=== PATIENT | female | born 1955 | race Caucasian/White ===

== ENCOUNTER → 2019-12-17 13:40 | Outpatient (REF) | payer OTHER, SELFPAY | LOC: ANHLAB 13:40 | PROVIDERS: PCP Family Medicine; Visit Provider Nurse Practitioner | DX: D49.2 Neoplasm of unspecified behavior of bone, soft tissue, and skin (principal); D22.72 Melanocytic nevi of left lower limb, including hip | CPT/HCPCS: 88305 ==

== ENCOUNTER 2019-12-23 17:30 | Outpatient (CLI) | payer OTHER, SELFPAY ==
[2019-12-23 17:48] LABS: Hematocrit 42.9 % (37.0-47.0); Hemoglobin 13.8 g/dL (12.0-15.0); Mean Corpuscular HGB Conc 32.2 g/dl (32-36); Mean Corpuscular Volume 83.8 fl (80-100); Mean Platelet Volume 10.3 fl (7.4-10.4); Platelet Count Result 291 k/mm3 (150-375); Red Blood Count 5.12 M/mm3 (4.2-5.4); Red Cell Distribution Width 13.4 % (11.5-14.5); White Blood Count 8.2 K/mm3 (4.5-10.0)
[2019-12-23 17:58] LABS: Blood Urea Nitrogen 15 mg/dL (7-17); Calcium 9.4 mg/dL (8.4-10.2); Carbon Dioxide 28 mmol/L (22-30); Chloride 104 mmol/L (98-107); Estimated Glomerular Filt Rate > 60; Glucose 88 mg/dL (65-105); Potassium 3.8 mmol/L (3.4-5.0); Sodium 139 mmol/L (137-145)
== END 2019-12-23 17:31 | disposition home or self-care (01) ==
PROVIDERS: PCP Family Medicine; Visit Provider Physician Assistant Medical
DX: R19.7 Diarrhea, unspecified (principal)
CPT/HCPCS: 36415; 80048; 85027

== ENCOUNTER 2020-01-29 10:34 | Outpatient (CLI) | payer OTHER, SELFPAY ==
[2020-01-29 11:09] LABS: Alanine Aminotransferase 41 U/L (4-35); Albumin Level 4.4 g/dL (3.5-5.1); Alkaline Phosphatase 201 U/L (38-126); Aspartate Amino Transferase 42 U/L (14-36); Bilirubin,Total 0.5 mg/dL (0.2-1.3)
== END 2020-01-29 10:35 | disposition home or self-care (01) ==
LOC: ANHLAB 10:38
PROVIDERS: PCP Family Medicine; Visit Provider Physician Assistant Medical
DX: R19.4 Change in bowel habit (principal)
CPT/HCPCS: 36415; 80076

== ENCOUNTER 2020-06-05 11:11 | Outpatient (CLI) | payer OTHER, SELFPAY ==
[2020-06-05 12:15] LABS: Basophils Percent Auto 0.7 % (0.2-1.2); Eosinophils Absolute Auto 0.2 K/mm3 (0-0.3); Eosinophils Percent Auto 3.1 % (0-4.4); Hematocrit 41.8 % (37.0-47.0); Hemoglobin 13.2 g/dL (12.0-15.0); Immature Granulocyte Absolute 0.01 K/mm3 (0.00-0.031); Immature Granulocyte Percent A 0.2 % (0-0.5); Lymphocytes Absolute Auto 1.42 K/mm3 (0.9-3.2); Mean Corpuscular HGB Conc 31.6 g/dl (32-36); Mean Corpuscular Hemoglobin 27.1 pg (26-34); Mean Corpuscular Volume 85.8 fl (80-100); Mean Platelet Volume 11.4 fl (7.4-10.4); Monocytes Absolute Auto 0.4 K/mm3 (0.1-0.6); Monocytes Percent Auto 7.9 % (2.6-8.5); Neutrophils Absolute Auto 3.4 K/mm3 (1.3-6.7); Neutrophils Percent Auto 62.1 % (45.5-73.1); Platelet Count Result 295 k/mm3 (150-375); Red Blood Count 4.87 M/mm3 (4.2-5.4); Red Cell Distribution Width 13.6 % (11.5-14.5); White Blood Count 5.5 K/mm3 (4.5-10.0)
[2020-06-05 12:27] LABS: Alanine Aminotransferase 36 U/L (4-35); Albumin Level 4.5 g/dL (3.5-5.1); Alkaline Phosphatase 170 U/L (38-126); Anion Gap 8 mmol/L (8-16); Aspartate Amino Transferase 38 U/L (14-36); Bilirubin,Total 0.5 mg/dL (0.2-1.3); Blood Urea Nitrogen 17 mg/dL (7-17); Calcium 9.3 mg/dL (8.4-10.2); Carbon Dioxide 27 mmol/L (22-30); Chloride 103 mmol/L (98-107); Estimated Glomerular Filt Rate > 60; Glucose 90 mg/dL (65-105); Potassium 4.2 mmol/L (3.4-5.0); Sodium 138 mmol/L (137-145)
== END 2020-06-05 11:12 | disposition home or self-care (01) ==
LOC: ANHLAB 11:13
PROVIDERS: PCP Family Medicine; Visit Provider Family Medicine
DX: K58.0 Irritable bowel syndrome with diarrhea (principal)
CPT/HCPCS: 36415; 80053; 84443; 85025

== ENCOUNTER 2020-06-10 00:53 | Outpatient (CLI) | payer OTHER, SELFPAY ==
[2020-06-10 18:19] LABS: SARS-CoV-2 RNA PCR Negative
== END 2020-06-10 00:54 | disposition home or self-care (01) ==
LOC: ANHCOVIDDT 00:54
PROVIDERS: PCP Family Medicine; Visit Provider Internal Medicine Gastroenterology
DX: Z01.812 Encounter for preprocedural laboratory examination (principal); Z20.828 Contact with and (suspected) exposure to other viral communicable diseases
CPT/HCPCS: 87635; C9803; U0003

== ENCOUNTER 2020-06-12 02:15 | Day surgery (SDC) | payer OTHER, SELFPAY ==
[2020-06-08 13:16] VITALS: BMI 26.5
[2020-06-12 07:32] VITALS: BP 131/100; PULSE 123; RESP 16; TEMP 35.8; O2SAT 100
--- NOTE | 2020-06-12 07:37 | SUR.PREOP ---
DR COBIAN MADE AWARE OF HEART RATE OF 123
[2020-06-12] MEDS: LACTATED RINGERS 1,000 ML 150 ML IV CONT (07:44)
--- NOTE | 2020-06-12 07:56 | P.HP_ITS ---
History of Present Illness History of Present Illness Consent: Risks, benefits, and alternatives have been discussed and questions answered. Patient agrees to proceed with procedure. Chief complaint: Diarrhea Narrative: Gina Rogers is a 64 year old W female referred for colonoscopy secondary change in bowel habits. Patient states since December of this year she has had increased number of stools and decreasing consistency. These are soft ribbon like but no blood in her stools. Okay and she thought she saw little red tinge. She states she had a colonoscopy [address] Prashant Mullen and was normal at this time. Patient does have a history of C diff colitis August 2018. Patient states she has lost 10 lb since July. Denies any increased stress. She carries a diagnosis of irritable bowel syndrome with chronic intermittent diarrhea. No family history of colon polyps or colon cancer. No food allergies no family history of celiac sprue. No change in medications. [facility] Past Medical History Medical History Change in stool caliber High cholesterol HTN (hypertension) Iron deficiency Irregular heartbeat Irritable bowel syndrome with diarrhea Social History Social History Smoking status: Never smoker Alcohol intake: current Meds Home Medications and Allergies Home Medications Medication Instructions Recorded Confirmed Type losartan 25 mg tablet 25 mg PO DAILY #90 tablet 09/23/19 06/12/20 Rx melatonin 5 mg tablet 5 mg PO DAILY #1 tablet 02/03/20 06/12/20 Rx promethazine 25 mg tablet 25 mg PO TID PRN #30 tablet 02/03/20 06/12/20 Rx tizanidine 4 mg tablet 4 mg PO TID PRN #30 tablet 03/02/20 06/12/20 Rx atorvastatin 20 mg tablet 20 mg PO DAILY #90 tablet 04/08/20 06/12/20 Rx diphenoxylate-atropine 2.5 1 tablet PO TID PRN #60 tablet 06/05/20 06/12/20 Rx mg-0.025 mg tablet zolpidem 5 mg PO DAILY PRN 06/08/20 06/12/20 History Allergies Allergy/AdvReac Type Severity Reaction Status Date / Time No Known Allergies Allergy Verified 06/12/20 07:31 Vital Signs Vital Signs - 24 hr 06/12/20 07:32 Temperature 35.8 C L Pulse Rate 123 H Respiratory Rate 16 Blood Pressure 131/100 H Pulse Oximetry 100 Exam Const: Orientation/consciousness: patient oriented x3 Resp: Auscultation: clear to auscultation bilaterally Cardio: Rate: regular rate Rhythm: regular rhythm Heart sounds: no murmurs GI: GI Palp: Yes Soft to palpation, No Tenderness to palpation present (GI), Yes No hepatosplenomegaly present and No Palpable mass present Auscultation: normal bowel sounds Neuro: General: patient oriented x3 and no focal motor deficits Extrem: General: no pedal edema Assessment and Plan Additional Plan Colonoscopy for evaluation of change in bowel habits with increased frequency of stools 2 crease consistency of stools and thinning of stools this is associated 10 lb weight loss. Last colonoscopy 8 years ago
--- NOTE | 2020-06-12 08:12 | P.PNAN_ITS ---
Anes - Initial Pre Proc Eval Procedure: Operation Date: 06/12/20 08:30 Proposed Procedures p Colonoscopy - Derek Saeed MD Date/Time: 06/12/20 08:12 Surgeon: Derek Saeed MD Pre Op Diagnosis: Diarrhea Patient Data Age: 64 Gender: F Height: 5 ft 2 in Weight: 65.5 kg Last Vital Signs Temp 96.5 F L 06/12/20 07:32 Pulse 123 H 06/12/20 07:32 Resp 16 06/12/20 07:32 BP 131/100 H 06/12/20 07:32 Pulse Ox 100 06/12/20 07:32 Allergies Allergy/AdvReac Type Severity Reaction Status Date / Time No Known Allergies Allergy Verified 06/12/20 07:31 Home Medications Medication Instructions Recorded Confirmed Type losartan 25 mg tablet 25 mg PO DAILY #90 tablet 09/23/19 06/12/20 Rx melatonin 5 mg tablet 5 mg PO DAILY #1 tablet 02/03/20 06/12/20 Rx promethazine 25 mg tablet 25 mg PO TID PRN #30 tablet 02/03/20 06/12/20 Rx tizanidine 4 mg tablet 4 mg PO TID PRN #30 tablet 03/02/20 06/12/20 Rx atorvastatin 20 mg tablet 20 mg PO DAILY #90 tablet 04/08/20 06/12/20 Rx diphenoxylate-atropine 2.5 1 tablet PO TID PRN #60 tablet 06/05/20 06/12/20 Rx mg-0.025 mg tablet zolpidem 5 mg PO DAILY PRN 06/08/20 06/12/20 History Patient hx anesthesia problems: none Family hx anesthesia problems: none [facility] Past Medical History Medical History (Updated 06/12/20 @ 08:12 by Isrrael Thomas MD) Change in stool caliber High cholesterol HTN (hypertension) Iron deficiency Irregular heartbeat being monitored by cardiology in [facility] Irritable bowel syndrome with diarrhea MENDY (obstructive sleep apnea) Social History Social History Smoking status: Never smoker Alcohol intake: current Anes - Eval Final PreProcedure Day of Procedure 06/12/20 08:12 Patient weight: normal Heart: irregular rhythm Lungs: clear to auscultation Airway: Mallampati scale class II Neurological: alert and oriented Last oral intake: >/= 8 hours ASA classification: III Emergent: no Anesthetic plan: proceed Anesthesia type and monitoring: general GIVS and standard monitoring Informed Consent: The patient's anesthetic plan and its attendant risks and benefits were discussed with the patient/family/POA. Questions were solicited an d answers provided to the satisfaction of the patient/family/POA.
[2020-06-12 08:55] VITALS: BP 99/58; PULSE 88; RESP 16; O2SAT 100
[2020-06-12 09:05] VITALS: BP 115/68; PULSE 83; RESP 16; O2SAT 100
[2020-06-12 09:15] VITALS: BP 111/60; PULSE 70; RESP 18; O2SAT 100
== END 2020-06-12 10:05 | disposition home or self-care (01) ==
PROVIDERS: PCP Family Medicine; Visit Provider Internal Medicine Gastroenterology
PROC: 0DJD8ZZ Inspection of Lower Intestinal Tract, Via Natural or Artificial Opening Endoscopic (ICD-10-PCS; CPT 45378; principal; 2020-06-12 08:30)
DX: K59.1 Functional diarrhea (principal); K64.8 Other hemorrhoids; K64.4 Residual hemorrhoidal skin tags; E78.00 Pure hypercholesterolemia, unspecified; I10 Essential (primary) hypertension
CPT/HCPCS: 45380; 88305; J2704; J7120

== ENCOUNTER 2020-06-25 09:26 | Outpatient (CLI) | payer OTHER, SELFPAY ==
[2020-06-29 12:29] LABS: Tissue Transglutaminase IgA Ab 1 U/mL (<4)
[2020-07-01 13:38] LABS: Tissue Transglutaminase IgG Ab 5 U/mL (<6)
[2020-07-01 21:46] LABS: Mitochondrial (M2) Ab (IgG) <=20.0 U (<=20.0)
== END 2020-06-25 09:27 | disposition home or self-care (01) ==
PROVIDERS: PCP Family Medicine; Visit Provider Internal Medicine Gastroenterology
DX: K58.0 Irritable bowel syndrome with diarrhea (principal)
CPT/HCPCS: 36415; 83516; 83520

== ENCOUNTER 2020-12-07 13:45 | Emergency (ER) | payer MEDICARE, OTHER, SELFPAY ==
[2020-12-07 13:46] VITALS: BP 171/86; PULSE 67; RESP 20; TEMP 36.7; O2SAT 98
[2020-12-07 14:05] LABS: Basophils Percent Auto 0.3 % (0.2-1.2); Eosinophils Absolute Auto 0.1 K/mm3 (0-0.3); Eosinophils Percent Auto 0.9 % (0-4.4); Hematocrit 42.9 % (37.0-47.0); Hemoglobin 14.1 g/dL (12.0-15.0); Immature Granulocyte Absolute 0.03 K/mm3 (0.00-0.031); Immature Granulocyte Percent A 0.4 % (0-0.5); Lymphocytes Absolute Auto 1.65 K/mm3 (0.9-3.2); Mean Corpuscular HGB Conc 32.9 g/dl (32-36); Mean Corpuscular Hemoglobin 27.8 pg (26-34); Mean Corpuscular Volume 84.4 fl (80-100); Mean Platelet Volume 10.7 fl (7.4-10.4); Monocytes Absolute Auto 1.1 K/mm3 (0.1-0.6); Neutrophils Percent Auto 63.4 % (45.5-73.1); Platelet Count Result 313 k/mm3 (150-375); Red Blood Count 5.08 M/mm3 (4.2-5.4); Red Cell Distribution Width 13.2 % (11.5-14.5); White Blood Count 7.9 K/mm3 (4.5-10.0)
[2020-12-07 14:24] LABS: Alanine Aminotransferase 32 U/L (4-35); Albumin Level 4.9 g/dL (3.5-5.1); Alkaline Phosphatase 153 U/L (38-126); Anion Gap 11 mmol/L (8-16); Aspartate Amino Transferase 36 U/L (14-36); Bilirubin,Total 0.5 mg/dL (0.2-1.3); Blood Urea Nitrogen 11 mg/dL (7-17); Calcium 9.4 mg/dL (8.4-10.2); Carbon Dioxide 26 mmol/L (22-30); Chloride 105 mmol/L (98-107); Estimated CRCL calculation 52 ml/min; Estimated Glomerular Filt Rate > 60; Glucose 112 mg/dL (65-105); Lipase 207 U/L (23-300); Potassium 3.3 mmol/L (3.4-5.0); Sodium 142 mmol/L (137-145)
[2020-12-07 14:48] LABS: Add Urine Microscopic? NO; Appearance Urine Clear (Clear); Bilirubin Urine Negative (Negative); Blood Urine Negative (Negative); Color Urine Straw (Yellow); Glucose Urine UA Negative (Negative); Ketones Urine Negative (Negative); Leukocyte Esterase Ur Negative LEU/UL (Negative); Nitrate Urine Negative (Negative); Protein Urine Negative (Negative); Specific Grav Ur 1.005 (1.001-1.035); Urobilinogen Urine Negative mg/dL (<2.0)
[2020-12-07 18:04] VITALS: BP 142/85; PULSE 70; RESP 18; O2SAT 98
--- NOTE | 2020-12-07 19:25 | ED.NAVMDI ---
HPI - Nausea/Vomiting/Diarrhea General Chief complaint: Nausea/Vomiting/Diarrhea Stated complaint: Diarrhea since 11/20/20 Time Seen by Provider: 12/07/20 15:22 History of Present Illness HPI Narrative: Patient is a 65-year-old female who reports she has been having diarrhea for over a week. She saw her PCP who started her on Xifaxan and cholestyramine as those medications helped previously. She does have history of IBS. No fevers or chills or sweats. She reports 12 loose stools a day. She believes are large amounts. No recent antibiotic use. She does have previous history of C. difficile. Has not performed any stool studies for this current episode. No blood in her stool. Related Data Home Medications Medication Instructions Recorded Confirmed cholestyramine (with sugar) ea 12/07/20 diphenoxylate-atropine tablet 12/07/20 12/07/20 Allergies Allergy/AdvReac Type Severity Reaction Status Date / Time No Known Allergies Allergy Verified 12/07/20 15:29 Review of Systems Review of Systems: All systems reviewed & are unremarkable except as noted in HPI and below Constitutional: Constitutional: Denies chills, Reports fatigue and Denies fever(s) ENT: Denies nasal congestion and Denies sore throat Cardiovascular: Cardiovascular: Denies chest pain, Denies rapid heart rate and Denies radiating jaw, neck or arm pain Respiratory: Respiratory: Denies cough, Denies dyspnea and Denies wheezing Gastrointestinal: Gastrointestinal: Denies abdominal pain, Reports diarrhea, Denies nausea and Denies vomiting PMFSH Past Medical History Medical History BMI 25.0-25.9,adult BMI 26.0-26.9,adult Change in stool caliber High cholesterol HTN (hypertension) Iron deficiency Irregular heartbeat being monitored by cardiology in [facility] Irritable bowel syndrome with diarrhea Non-alcoholic fatty liver disease MENDY (obstructive sleep apnea) Family History Family History Mother Patient's mother is in good health Sibling Patient's sister is in good health Family history of malignant melanoma Father Hypertension Family history of malignant melanoma Social History Social History Alcohol intake: current Gender identity (if verbalized by the patient): Female Exam Narrative: Exam Narrative: GENERAL: Well-appearing, well-nourished, and in no acute distress. HEAD: Normocephalic, atraumatic. CHEST: Clear to auscultation. No respiratory distress. HEART: Regular rate and rhythm. Normal peripheral pulses. ABDOMEN: Soft, nontender, nondistended. EXTREMITIES: Normal range of motion. No edema. SKIN: Warm, dry, no rash. NEURO: Alert and oriented x3. PSYCH: Normal mood and affect. Course Course Emergency Course: Unremarkable labs. Patient hydrated. She is able to provide a stool sample. Will start on Flagyl for home. Follow-up with PCP and GI. Vital Signs Vital signs: Vital Signs Temperature 98.1 F 12/07/20 13:46 Pulse Rate 67 12/07/20 13:46 Respiratory Rate 20 12/07/20 13:46 Blood Pressure 171/86 H 12/07/20 13:46 Pulse Oximetry 98 12/07/20 13:46 Temperature 98.1 F 12/07/20 13:46 Pulse Rate 70 12/07/20 18:04 Respiratory Rate 18 12/07/20 18:04 Blood Pressure 142/85 H 12/07/20 18:04 Pulse Oximetry 98 12/07/20 18:04 MDM - Nausea/Vomiting/Diarrhea Lab Data Result diagrams: 12/07/20 13:55 12/07/20 13:55 Labs: Lab Results 12/07/20 12/07/20 12/07/20 Range/Units 13:55 13:55 14:40 WBC 7.9 (4.5-10.0) K/mm3 RBC 5.08 (4.2-5.4) M/mm3 Hgb 14.1 (12.0-15.0) g/dL Hct 42.9 (37.0-47.0) % MCV 84.4 (80-100) fl MCH 27.8 (26-34) pg MCHC 32.9 (32-36) g/dl RDW 13.2 (11.5-14.5) % Plt Count 313 (150-375) k/mm3 MPV 10.7 H (7.4-10.4) fl Immature
[2020-12-07] MEDS: SODIUM CHLORIDE 0.9% IV 1,000 ML 999 ML IV CONT (19:32)
[2020-12-07 20:55] VITALS: BP 143/72; PULSE 70; RESP 16; O2SAT 98
== END 2020-12-07 20:55 | disposition home or self-care (01) ==
PROVIDERS: Emergency Provider Emergency Medicine; PCP Family Medicine
DX: R19.7 Diarrhea, unspecified (principal); E78.00 Pure hypercholesterolemia, unspecified; I10 Essential (primary) hypertension; K76.0 Fatty (change of) liver, not elsewhere classified; G47.33 Obstructive sleep apnea (adult) (pediatric)
CPT/HCPCS: 36415; 80053; 81003; 83690; 85025; 87015; 87045; 87046; 87269; 87272; 87324; 87427; 89055; 96360; 99283; J7030

== ENCOUNTER → 2021-12-10 02:25 | Outpatient (CLI) | payer MEDICARE, OTHER, SELFPAY ==
[2021-12-10 17:14] LABS: SARS-CoV-2 RNA PCR Negative
== END ==
PROVIDERS: PCP Family Medicine; Visit Provider Nurse Practitioner Family
DX: R68.89 Other general symptoms and signs (principal); Z20.822 Contact with and (suspected) exposure to COVID-19
CPT/HCPCS: C9803; U0003; U0005

== ENCOUNTER 2022-05-05 12:18 | Outpatient (CLI) | payer MEDICARE, OTHER, SELFPAY ==
[2022-05-05 12:45] LABS: Hematocrit 42.5 % (37.0-47.0); Hemoglobin 13.8 g/dL (12.0-15.0); Mean Corpuscular HGB Conc 32.5 g/dl (32-36); Mean Corpuscular Hemoglobin 27.7 pg (26-34); Mean Corpuscular Volume 85.3 fl (80-100); Mean Platelet Volume 10.3 fl (7.4-10.4); Platelet Count Result 265 k/mm3 (150-375); Red Blood Count 4.98 M/mm3 (4.2-5.4); Red Cell Distribution Width 13.7 % (11.5-14.5); White Blood Count 4.8 K/mm3 (4.5-10.0)
[2022-05-05 13:00] LABS: Alanine Aminotransferase 47 U/L (6-35); Albumin Level 4.6 g/dL (3.5-5.1); Alkaline Phosphatase 150 U/L (38-126); Anion Gap 8 mmol/L (8-16); Aspartate Amino Transferase 38 U/L (14-36); Bilirubin,Total 0.6 mg/dL (0.2-1.3); Blood Urea Nitrogen 14 mg/dL (7-17); Calcium 9.4 mg/dL (8.4-10.2); Carbon Dioxide 28 mmol/L (22-30); Chloride 106 mmol/L (98-107); Cholesterol 211 mg/dL (0-200); Estimated Glomerular Filt Rate > 60; Glucose 87 mg/dL (65-110); HDL Direct 68 mg/dL; Magnesium 2.2 mg/dL (1.6-2.3); Potassium 4.1 mmol/L (3.4-5.0); Sodium 142 mmol/L (137-145); Triglycerides 230 mg/dL (<150)
[2022-05-05 13:11] LABS: LDL Cholesterol Direct 85 mg/dL
[2022-05-05 13:26] LABS: Vitamin D 25 Hydroxy 36.6 ng/mL
== END 2022-05-05 12:19 | disposition home or self-care (01) ==
LOC: ANHLAB 12:22
PROVIDERS: PCP Family Medicine; Visit Provider Nurse Practitioner Family
DX: R79.0 Abnormal level of blood mineral (principal); E78.2 Mixed hyperlipidemia; Z13.29 Encounter for screening for other suspected endocrine disorder; E55.9 Vitamin D deficiency, unspecified; I10 Essential (primary) hypertension
CPT/HCPCS: 36415; 80053; 80061; 82306; 83735; 84443; 85027

== ENCOUNTER 2022-07-21 14:49 | Outpatient (CLI) | payer MEDICARE, OTHER, SELFPAY ==
--- NOTE | ~2022-07-21 | DEXA_ITS ---
Bone Density Report Name: FARIDEH MATHEWS Age: 66 Sex: Female Ethnicity: White Date of : 1955 Indication: postmenopausal; screening for osteoporosis; inflammatory bowel disease; prior fracture; hysterectomy; Referring Provider: KAMINI ELIZABETH Study: Bone densitometry was performed. Exam Date: July 21, 2022 Accession number: [id number] Bone Density: Region BMD T-score Z-score Classification AP Spine(L1-L4) 1.039 -0.1 1.8 Normal Femoral Neck (Left) 0.769 -0.7 0.9 Normal Total Hip (Left) 0.884 -0.5 0.8 Normal Femoral Neck (Right) 0.878 0.3 1.9 Normal Total Hip (Right) 0.894 -0.4 0.9 Normal Total Hip Mean 0.889 -0.5 0.9 Normal World Health Organization criteria for BMD impression classify patients as: Normal (T-score at or above -1.0), Osteopenia (T-score between -1.0 and -2.5), or Osteoporosis (T-score at or below -2.5). 10-year Fracture Risk: FRAX not reported because: All T-scores for Spine Total, Hip Total, Femoral Neck at or above -1.0 Prior hip or vertebral fracture Clinical Information Provided by Patient: Have had a previous hip or vertebral fracture Has had a low trauma fracture Has used the following medications: Vitamin D, Calcium Has the following medical conditions: Inflammatory bowel diseases, Hysterectomy Patient maximum height was 62 Menopause Age: 60 Drinks caffeinated beverages Onset of menses at age 14 Number of children 3 Impression: The patient has normal bone mass. The patient has risk factors, including: previous fracture. Discussion: INCREASED RISK OF FRACTURE DUE TO HISTORY OF FRACTURE. The patient's previous fracture puts the patient at high risk of a future fracture. In untreated patients, the risk of osteoporotic fracture increases approximately two-fold for each 1.0 SD decrease in T-score. Low bone density is not the only risk factor for fracture; also consider factors such as patient's age, frailty or poor health, risk of falling, risk of injury, previous osteoporotic fracture, family history of osteoporosis, cigarette smoking, low body weight, etc. Not everyone with a low trauma fracture has osteoporosis; osteomalacia and other metabolic bone disorders should also be considered. Patients who have osteoporosis should be evaluated for specific diseases and conditions (secondary causes) that may cause or contribute to bone loss and fracture risk. National Osteoporosis Foundation (NOF) recommends pharmacologic intervention for patients with a prior hip or vertebral fracture regardless of BMD T-score. The patient should follow a healthful lifestyle (good nutrition with adequate calcium and vitamin D, and appropriate weight-bearing exercise). Follow-Up: Consider a repeat BMD and Vertebral Fracture Assessment (VFA) exam in 2 years or sooner if medicall
--- NOTE | ~2022-07-21 | MM_ITS ---
EXAMINATION: MM screening [facility] BI w brian HISTORY: Screening mammogram TECHNIQUE: Craniocaudal and mediolateral oblique 3-D tomosynthesis images were obtained and synthetic 2-D images were generated. CAD analysis was submitted and interpreted. COMPARISON: 09/04/2017, 06/03/2016, 11/14/2013 BREAST PARENCHYMAL COMPOSITION: There are scattered areas of fibroglandular density. FINDINGS: Scattered benign-appearing calcifications are present. No suspicious mass, calcification, o r architectural distortion are identified in either breast to suggest malignancy. There has been no s uspicious interval change. IMPRESSION: 1. No mammographic evidence of malignancy. 2. Recommend routine screening mammography in one year. BI-RADS Category 2: Benign finding(s). Reviewed, dictated and finalized at location B.
== END 2022-07-21 14:50 | disposition home or self-care (01) ==
PROVIDERS: PCP Family Medicine; Visit Provider Nurse Practitioner Family
DX: Z12.31 Encounter for screening mammogram for malignant neoplasm of breast (principal); Z78.0 Asymptomatic menopausal state
CPT/HCPCS: 77063; 77067; 77080

== ENCOUNTER 2023-04-28 09:32 | Outpatient (CLI) | payer MEDICARE, OTHER, SELFPAY ==
--- NOTE | ~2023-04-28 | XR_ITS ---
Thoracic spine: Clinical Indication: Back pain AP and lateral views were performed. No fracture is seen. There is normal alignment of the vertebrae. The intervertebral disc spaces appe ar normal. Paravertebral soft tissues appear normal. Impression: No significant abnormalities noted. Reviewed, dictated and finalized at [facility]. Impression: No significant abnormalities noted.
--- NOTE | ~2023-04-28 | XR_ITS ---
Lumbosacral Spine: AP and lateral views Clinical History: Pain Findings: The normal lordotic curve is maintained. The vertebral bodies and posterior elements are i ntact. The intervertebral disc spaces are preserved. There is mild facet arthropathy at and L5-S1. T he sacroiliac joints are normally outlined. Impression: Mild facet arthropathy at L5-S1. Reviewed, dictated and finalized at location . Impression: Mild facet arthropathy at L5-S1.
[2023-04-28 10:07] LABS: Hematocrit 41.7 % (37.0-47.0); Hemoglobin 13.1 g/dL (12.0-15.0); Mean Corpuscular HGB Conc 31.4 g/dl (32-36); Mean Corpuscular Hemoglobin 27.3 pg (26-34); Mean Corpuscular Volume 87.1 fl (80-100); Mean Platelet Volume 10.7 fl (7.4-10.4); Platelet Count Result 261 k/mm3 (150-375); Red Blood Count 4.79 M/mm3 (4.2-5.4); Red Cell Distribution Width 14.1 % (11.5-14.5); White Blood Count 6.5 K/mm3 (4.5-10.0)
[2023-04-28 10:45] LABS: Alanine Aminotransferase 39 U/L (6-35); Albumin Level 4.3 g/dL (3.5-5.1); Alkaline Phosphatase 134 U/L (38-126); Anion Gap 5 mmol/L (8-16); Aspartate Amino Transferase 36 U/L (14-36); Bilirubin,Total 0.5 mg/dL (0.2-1.3); Blood Urea Nitrogen 19 mg/dL (7-17); Calcium 9.4 mg/dL (8.4-10.2); Carbon Dioxide 31 mmol/L (22-30); Chloride 105 mmol/L (98-107); Cholesterol 251 mg/dL (0-200); Estimated Glomerular Filt Rate > 60; Glucose 84 mg/dL (65-110); HDL Direct 69 mg/dL; Potassium 4.4 mmol/L (3.4-5.0); Sodium 141 mmol/L (137-145); Triglycerides 204 mg/dL (<150)
[2023-04-28 10:55] LABS: LDL Cholesterol Direct 125 mg/dL
[2023-04-28 11:32] LABS: Vitamin D 25 Hydroxy 37.2 ng/mL
== END 2023-04-28 09:33 | disposition home or self-care (01) ==
PROVIDERS: PCP Family Medicine; Visit Provider Nurse Practitioner Family
DX: M54.50 Low back pain, unspecified (principal); M47.817 Spondylosis without myelopathy or radiculopathy, lumbosacral region; Z87.81 Personal history of (healed) traumatic fracture; I10 Essential (primary) hypertension; E78.2 Mixed hyperlipidemia; K76.0 Fatty (change of) liver, not elsewhere classified; Z13.29 Encounter for screening for other suspected endocrine disorder; E55.9 Vitamin D deficiency, unspecified
CPT/HCPCS: 36415; 72070; 72100; 80053; 80061; 82306; 84443; 85027

== ENCOUNTER 2023-06-05 15:34 | Outpatient (CLI) | payer MEDICARE, OTHER, SELFPAY ==
[2023-06-05 17:37] LABS: Thyroid Stimulating Hormone 0.312 uIU/mL (0.465-4.680)
[2023-06-05 18:27] LABS: Free T4 Free Thyroxine 1.07 ng/mL (0.78-2.19)
== END 2023-06-05 15:35 | disposition home or self-care (01) ==
PROVIDERS: PCP Family Medicine; Visit Provider Nurse Practitioner Family
DX: R79.89 Other specified abnormal findings of blood chemistry (principal); E03.9 Hypothyroidism, unspecified
CPT/HCPCS: 36415; 84439; 84443

== ENCOUNTER 2023-07-18 13:55 | Outpatient (CLI) | payer MEDICARE, OTHER, SELFPAY ==
[2023-07-18 15:26] LABS: Free T4 Free Thyroxine 1.02 ng/mL (0.78-2.19)
[2023-07-18 15:29] LABS: Thyroid Stimulating Hormone 0.086 uIU/mL (0.465-4.680)
== END 2023-07-18 13:56 | disposition home or self-care (01) ==
PROVIDERS: PCP Family Medicine; Visit Provider Nurse Practitioner Family
DX: E03.9 Hypothyroidism, unspecified (principal); R79.89 Other specified abnormal findings of blood chemistry
CPT/HCPCS: 36415; 84439; 84443

== ENCOUNTER 2023-09-05 13:06 | Outpatient (CLI) | payer MEDICARE, OTHER, SELFPAY | END 2023-09-05 13:07 | disposition home or self-care (01) | LOC: ANHLAB 13:08 | PROVIDERS: PCP Family Medicine; Visit Provider Nurse Practitioner Family | DX: E03.9 Hypothyroidism, unspecified (principal) | CPT/HCPCS: 36415; 84439; 84443 ==

== ENCOUNTER 2024-12-09 14:58 | Outpatient (CLI) | payer MEDICARE, OTHER, SELFPAY ==
--- NOTE | ~2024-12-09 | MM_ITS ---
EXAMINATION: MM screening [facility] BI w brian HISTORY: Screening TECHNIQUE: Craniocaudal and mediolateral oblique 3-D tomosynthesis images were obtained and synthetic 2-D images were generated. CAD analysis was submitted and interpreted. COMPARISON: Comparison to multiple prior studies sequentially, with oldest reviewed study dated 06/03. BREAST PARENCHYMAL COMPOSITION: Not dense: There are scattered areas of fibroglandular density. FINDINGS: There is no evidence of suspicious mass, calcification, or architectural distortion to sugg est malignancy in either breast. There has been no suspicious interval change. IMPRESSION: 1. No mammographic evidence of malignancy. 2. Recommend routine screening mammography in one year. BI-RADS Category 1: Negative Reviewed, dictated and finalized at location A. GE MACHINE OPERATOR
--- OUTSIDE RECORDS SUMMARY | 2024-12-09 17:29 | XMS_ITS | Referral Summary ---
Author Organization [facility] [employer] Address [address] [place] [address] Care Team Providers Care Robotics Testing Technician Name Role Phone Epifanio Cavanaugh MD Primary Care Provider [phone] Source Comments [facility],non-owned Affiliates and Associated Physician Practices is amultiple site organization consisting of ambulatory clinics and hospital sitesin [place], [place] and [place]. This disclosure is being madepursuant to the Care Everywhere program and may not contain all information available regarding this patient. Last updated 18.[employer] [facility] Allergies No known active allergies Immunizations Name Administration Dates Next Due INFLUENZA VACCINE, QUADR. (F LUZONE; FLULAVAL; FLUARIX; AFLURIA QUADRIVALENT; 6MO+), 0.5 ML (IIV4) 08/27/2019,07/08/2017 TDAP (7yrs+) 07/08/2017 Social History Tobacco Use Types Packs/Day Years Used Date Smoking Tobacco: Never Assessed Sex and Gender Information Value Date Recorded Sex Assigned at Not on file Gender Identity Not on file Sexual Orientation Not on file Plan of Treatment Not on file Care Teams Robotics Testing Technician Relationship Specialty Start Date End Date Epifanio Cavanaugh MD [address] [place] [address] PCP - General Family Medicine 07/08/17
--- OUTSIDE RECORDS SUMMARY | 2024-12-09 17:29 | XMS_ITS | Clinical Summary ---
Author Organization [facility] [employer] Address [address] [place] [address] Care Team Providers Care Automotive Shop Foreman Name Role Phone Epifanio Cavanaugh MD Primary Care Provider [phone] Source Comments [facility] [employer],non-owned Affiliates and Associated Physician Practices is amultiple site organization consisting of ambulatory clinics and hospital sitesin [place], [place], [place] and [place]. This disclosure is being madepursuant to the Care Everywhere program and may not contain all information available regarding this patient. Last updated 18.[facility] [employer] Allergies No known active allergies Immunizations Name [...] Orientation Not on file Plan of Treatment Health Maintenance Due Date Last Done Comments BONE DENSITY TESTING 1955 COLOGUARD (AGES 45-75) - COL ON CA SCREENING 1955 COLON MONITORING 1955 COLONOSCOPY - COLON CA SCREENING 1955 CT COLONOGRAPHY - COLON CA SCREENING 1955 Colorectal Cancer Screening 1955 FIT - COLON CA SCREENING 1955 FLEX SIG - COLON CA SCREENING 1955 LIPID TESTING 1955 MAMMOGRAM 1955 HEPATITIS C SCREENING 11/16/1973 PNEUMOCOCCAL VACCINE 50+ (1 of 1 - PCV) 2005 ZOSTER VACCINE (1 of 2) 2005 COVID-19 VACCINE (1 - 2023-2 5 season) 2024 INFLUENZA VACCINE (#1) 2024 9, 07/08/2017 DEPRESSION SCREENING 10/16/2024 DTAP/TDAP/TD VACCINES (2 - T d or Tdap) 07/08/2027 07/08/2017 Respiratory Syncytial Virus (RSV) Vaccine Pt: or over 60 yrs (1 - 1-dose 75+ series) 2030 HEPATITIS B VACCINE Aged Out No longe r eligible based on patient's age to complete this topic HIB VACCINE Aged Out No longer eligi ble based on patient's age to complete this topic HPV VACCINE Aged Out No longer eligi ble based on patient's age to complete this topic MENINGOCOCCAL (Group B) VACCINE Aged Out No longer eligible b ased on patient's age to complete this topic MENINGOCOCCAL VACCINE Aged Out No caty susie eligible based on patient's age to complete this topic Care Teams Automotive Shop Foreman Relationship Specialty Start Date End Date Epifanio Cavanaugh MD [address] [place] [address] PCP - General Family Medicine 07/08/17
--- OUTSIDE RECORDS SUMMARY | 2024-12-09 17:30 | XMS_ITS | Referral Summary ---
Author Organization [facility] Address [address] [place] [address] Care Team Providers Care Flasher Adjuster Name Role Phone Eusebio Schaefer MD Primary Care Provider [phone] Encounters Date Type Department Care Team Description 11/27/2024 7:55 AM CLAIMS INVESTIGATOR Anesthesia Event [address] [address] Quentin Michaud MD Zirkelbach, Cecilia A., CRNA 11/27/2024 7:25 AM CLAIMS INVESTIGATOR - 11/27/2024 7:55 AM CLAIMS INVESTIGATOR Surgery [address] [address] Divina Shaw MD COLON BIOPSY 11/27/2024 7:04 AM CLAIMS INVESTIGATOR - 11/27/2024 9:26 AM CLAIMS INVESTIGATOR Hospital Encounter [address] [address] Divina Shaw MD Positive colorectal cancer screening using Cologuard test; Encounter for screening colonoscopy Discharge Disposition: Discharge to home or self care 10/28/2024 Telephone [facility] Gastroenterology at [address] [place] [phone] Divina Shaw MD 10/24/2024 Orders Only [facility] Primary Care at [address] [address] Eusebio Schaefer MD Hypertension, essential (Primary Dx); Hypercholesterolem ia 10/23/2024 7:51 PM CLAIMS INVESTIGATOR - 10/23/2024 11:59 PM CLAIMS INVESTIGATOR Hospital Encounter [address] [address] Hypertension, essential; Gastroesophageal reflux disease without esophagitis; Hypercholesterolem ia Discharge Disposition: Discharge to home or self care 10/23/2024 4:00 PM CLAIMS INVESTIGATOR Lab [facility] Outpatient Lab at [address] [address] Encounter for Medicare annual wellness exam (Primary Dx) 10/23/2024 3:15 PM CLAIMS INVESTIGATOR Office Visit [facility] Primary Care at [address] [address] Eusebio Schaefer MD Encounter for Medicare annual wellness exam (Primary Dx); Hypertension, essential; Gastroesophageal reflux disease without esophagitis; Hypercholesterolem ia; Screening for osteoporosis; Positive colorectal cancer screening using Cologuard test; Recurrent major depressive disorder, in full remission (CMS/HCC) (HCC); Other irritable bowel syndrome from Last 3 Months Allergies No known active allergies Medications cholestyramine (QUESTRAN) 4 gram packet DIS CNTS IN 8 OUNCES OF LIQUID AND DRINK D 0 Active L.acidoph-L.rham n-B.bif-B.long (Probiotic Acidophilus Biobeads) 12.9 mg (2 billion cell) tablet,delayed release (DR/EC) 17.5 billion CFU 9 Active promethazine (PHENERGAN) 25 mg tablet Take 1 tablet (25 mg total) by mouth every 6 (six) hours as needed for nausea or vomiting Active multivitamin with minerals (HAIR,SKIN AND NAILS ORAL) Take by mouth Acti ve losartan (COZAAR) 25 mg tabletIndication s:Hypertension, essential Take 1 tablet (25 mg total) by mouth daily Active cetirizine (ZyrTEC) 10 mg chewable tablet Take 1 tablet (10 mg total) by mouth daily Active tiZANidine (ZANAFLEX) 4 mg tablet Take 1 tablet (4 mg total) by mouth every 6 (six) hours as needed for muscle spasms 30 tablet 2 4 Active sertraline (ZOLOFT) 100 mg tabletIndication s:Recurrent major depressive disorder, in full remission (CMS/HCC) (HCC),Other irritable bowel syndrome Take 1 tablet (100 mg total) by mouth daily 90 tablet 3 5 10/23/19 26 Active zolpidem (AMBIEN) 5 mg tabletIndication s:Sleep-Onset Insomnia Take 1 tablet (5 mg total) by mouth nightly as needed for sleep 30 tablet 1 5 Active atorvastatin (LIPITOR) 40 mg tabletIndication s:Hypercholester olemia Take 1 tablet (40 mg total) by mouth daily 90 tablet 3 5 10/23/19 26 Active Active Problems Problem Noted Date Diagnosed Date Positive colorectal cancer screening using Colog uard test 10/28/2024 Encounter for screening colonoscopy 10/28/2024 Encounter for Medicare annual wellness exam 05/2025 Assessment & Plan (10/23/2024 3:34 PM CLAIMS INVESTIGATOR): A(n) yearly Medicare Annual Wellness Visit has been performed today. Gina Rogers is not up to date on screening tests. She is in need of DEXA and Breast cancer screening. She is not up to date on needed preventative vaccinations; She is in need of Zoster. We discussed healthy lifestyle habits, educational material has been given. Medications reviewed, changes documented as per the medical record and discussed with patient along with risks vs benefits. Specific topics reviewed: drugs, ETOH, and tobacco, importance of regular dental care, importance of regular exercise, importance of varied diet, limit TV, media violence, minimize junk food, and seat belts. Return in 6 months Recurrent major depression 10/23/2024 Encounter for medical examination to establish c are 04/17/2024 Assessment & Plan (04/17/2024 3:05 PM CDT): A(n) initial well visit to establish care has been performed today. Gina Rogers is not up to date on screening tests. She is in need of DEXA, Breast cancer screening, hepatitis B, C, Colon cancer screening, and Cholesterol screening. She is not up to date on needed preventative vaccinations; She is in need of Pneumonia (Prevnar-13 or Pneumovax-23) and Zoster. We discussed healthy lifestyle habits, educational material has been given. Medications reviewed, changes documented as per the medical record and discussed with patient along with risks vs benefits. 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 Chronic diarrhea 07/08/2021 History of Clostridium difficile infection 07/08 History of cholecystectomy 07/08/2021 History of Sheldon fundoplication 07/08/2021 Palpitations 10/15/2019 Sinus tachycardia 10/15/2019 Gastroesophageal reflux disease 01/30/2017 Elevated transaminase level 11/30/2015 Immunizations Immunization Administration Dates Next Due Influenza, Quadrivalent, Hig h Dose, Preservative Free, Intrr 08/04/2023,07/29/2022,07/31/2021 Influenza, Quadrivalent, Spl it, Preservative Free, Intramuscular 08/14/2020,08/27/2019,08/20/2018,07/08 Influenza, Split 07/02/2013 Influenza, Trivalent, High D ose, Split, Preservative Free, Intramuscular 07/02/2024 Influenza, Unspecified 07/02/2024 Pfizer SARS-CoV-2 Monovalent Vaccination (12+ Yrs) PURPLE 01/07/2021,12/17/2020 Pneumococcal Conjugate Pcv20 08/23/2024,04/17/20 24 Tdap 07/08/2017 ZOSTER Recombinant 08/23/2024 Social History Tobacco Use Types Packs/Day Years Used Date Smoking Tobacco: Never Smokeless Tobacco: Never Tobacco Cessation:Counseling Given: Not Answered Alcohol Use Standard Drinks/Week Comments Not Currently 0 (1 standard drink = 0.6 oz pure alcohol) 2 or 3 glasses of wine per year till 2018 AUDIT-C Answer Date Recorded Q1: How often do you have a drink containing alc ohol? Monthly or less 04/17/2024 Q2: How many drinks containi ng alcohol do you have on a typical day when you are drinking? 1 or 2 04/17/2024 Q3: How often do you have si x or more drinks on one occasion? Never 04/17/2024 PHQ-2 Answer Date Recorded PHQ-2 Total Score (If total score is 3 or more points, staff should administer the PHQ-9) 0 10/22/2024 Personal Safety Answer Date Recorded Have you ever been in or are you currently in a harmful physical or emotional relationship or is someone making you feel afraid or unsafe? 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 Not on file Not on file Not on file Last Filed Vital Signs Vital Sign Reading Time Taken Comments Blood Pressure 118/63 11/27/2024 9:06 AM CLAIMS INVESTIGATOR Pulse 51 11/27/2024 9:06 AM CLAIMS INVESTIGATOR Temperature 36.6 C (97.8 F) 11/27/2024 9:06 AM CLAIMS INVESTIGATOR Respiratory Rate 18 11/27/2024 9:06 AM CLAIMS INVESTIGATOR Oxygen Saturation 97% 11/27/2024 9:06 AM CLAIMS INVESTIGATOR Inhaled Oxygen Concentration - - Weight 66.7 kg (147 lb) 11/27/2024 7:19 AM CLAIMS INVESTIGATOR Height 152.4 cm (5') 11/27/2024 7:19 AM CLAIMS INVESTIGATOR Body Mass Index 28.71 11/27/2024 7:19 AM CLAIMS INVESTIGATOR Plan of Treatment Not on file Procedures Procedure Name Priority Date/Time Associated Diagnosis Comments SURGICAL PATHOLOGY STAT 11/27/2024 11 :29 AM CLAIMS INVESTIGATOR Positive colorectal cancer screening using Cologuard test Encounter for screening colonoscopy COLON BIOPSY 11/27/2024 7:49 AM CLAIMS INVESTIGATOR Positive colorectal cancer screening using Cologuard test Encounter for screening colonoscopy COLONOSCOPY 11/27/2024 7:10 AM CLAIMS INVESTIGATOR EGFR Routine 10/23/2024 12:00 PM CLAIMS INVESTIGATOR Hypertension, essential DIFFERENTIAL AUTO Routine 10/23/2024 12: 00 PM CLAIMS INVESTIGATOR Hypertension, essential Gastroesophageal reflux disease without esophagitis LIPID PANEL Routine 10/23/2024 12:00 PM CLAIMS INVESTIGATOR Hypercholesterolemi a COMPREHENSIVE METABOLIC PANEL Routine 10/23/2024 12:00 PM CLAIMS INVESTIGATOR Hypertension, essential CBC WITH AUTO DIFFERENTIAL Routine 10/23/2024 12:00 PM CLAIMS INVESTIGATOR Hypertension, essential Gastroesophageal reflux disease without esophagitis HM DEXA SCAN Routine 07/21/2022 11:13 AM CDT HEPATITIS C ANTIBODY Routine 06/30/2020 11:44 AM CDT Transaminitis from Last 3 Months or Most Recently Relevant to Health Maintenance Results * Surgical pathology (11/27/2024 11:29 AM CLAIMS INVESTIGATOR) Tissue (Colon, Biopsy) 11/27/2024 8:33 AM CLAIMS INVESTIGATOR Narrative PATHOLOGY [facility] - 11/28/2024 2:37 PM CLAIMS INVESTIGATOR [facility] results best viewed via link to PDF [facility] Department of Pathology [address] [place] [address] Note to Patients: This report may contain a detailed description of human tissue sent by a health care provider to the laboratory for pathologic evaluation. The content of this report is essential for diagnosis and may provide important critical findings. This information may be unfamiliar to patients to review without a medical professional present. It is advised that the patient review this report in the presence of a health care provider who can answer questions and explain the details. Final Report Patient Name: GINA ROGERS Address: [address] [place] [address] Gender: F : 1955 (Age: 69) Service: Gastro Location: [facility] Hospital #: [id number] Patient Type: [facility] Taken: 11/27/2024 Received: 11/27/2024 Accessioned: 11/27/2024 Reported: 11/28/2024 Physician(s):Divina Shaw MD Diagnosis: Colon, random, biopsy: - Colonic mucosa with no significant histopathologic abnormalities. Gareth Go MD Report Electronically Reviewed and Signed Out By Gareth Go MD 11/28/2024 14:37:50 Specimen(s) Received: A: Random colon biopsy Microscopic Description: Microscopic examination shows colonic mucosa with no significant histopathologic abnormalities. There is no significant active inflammation. There is no significant intraepithelial lymphocytosis nor is there thickening of the subepithelial collagen layer. There is no evidence of dysplasia or malignancy. Clinical History: Positive colorectal cancer screening using Cologuard test. Screening colonoscopy. Gross Description: The specimen is submitted in a single formalin filled container labeled GINA [place] dylan . It is 5 fragments of aguirre tissue measuring 2 mm. All in one cassette. Bia Castro R.N., P.A./Cindi Gallegos M.D. REPORT IMAGES AND SCANNED DOCUMENTS, IF INCLUDED, ONLY VIEWABLE IN PDF VERSION OF REPORT The performance characteristics of some immunohistochemical stains, fluorescence in-situ hybridization tests and immunophenotyping by flow cytometry cited in this report (if any) were determined by the Surgical Pathology Department at [facility] as part of an ongoing quality project manager program and in compliance with federally mandated regulations drawn from the Clinical Laboratory Improvement Act of 1988 (CLIA '88). Some of these tests rely on the use of analyte specific reagents and are subject to specific labeling requirements by the US Food and Drug Administration. Such diagnostic tests may only be performed in a facility that is certified by the Department of Health and Human Services as a high complexity laboratory under CLIA '88. The FDA has determined that such clearance or approval is not necessary. This test is used for clinical purposes. It should not be regarded as investigational or for research. Nevertheless, federal rules concerning the medical use of analyte specific reagents require that the following disclaimer be attached to the report: This test was developed and its performance characteristics determined by the Surgical Pathology Department [facility]. It has not been cleared or approved by the U. S. Food and Drug Administration. Note for decalcified specimens: This assay has not been validated on decalcified tissues. Results should be interpreted with caution given the possibility of false negativity on decalcified specimens us Divina Shaw MD LAB PATHOLOGY ORDERABLES Final R esult PATHOLOGY [facility] [address] [place] [address] * Colonoscopy (11/27/2024 7:10 AM CLAIMS INVESTIGATOR) Anatomical Region Laterality Modality Other Narrative Procedure Note Divina Shaw MD - 11/27/2024 7:10 AM CST [facility] Patient Name: Gina Rogers Procedure Date: 11/27/2024 7:10 AM Date of : 1955 Admit Type: Outpatient Age: 69 Gender: Female Attending MD: Divina Shaw M.D. Room: [facility] ENDOSCOPY ROOM 2 Note Status: Finalized Patient Profile: This is a 69 year old female history of IBS-D/SIBO, HTN, HLD here for positive Cologuard. No family history of colon cancer. Previous colonoscopy 2019 normal per patient. No prior hx of polyps. Diarrhea overall is controlled with antibiotic as needed for SIBO about twice a month. Procedure: Colonoscopy Indications: Last colonoscopy: 2019, Positive Cologuard test Referring MD: Eusebio Schaefer M.D. Providers: Divina Shaw M.D. Impression: - Hemorrhoids found on perianal exam. - The examined portion of the ileum was normal. - External and internal hemorrhoids. - The examination was otherwise normal. - There was significant looping of the colon. - Biopsies were taken with a cold forceps from the entire colon for evaluation of microscopiccolitis. Recommendation: - Patient has a contact number available for emergencies. The signs and symptoms of potential delayed complications were discussed with thepatient. Return to normal activities tomorrow. Written discharge instructions were provided to thepatient. - Discharge patient to home (with escort). - High fiber diet. - Continue present medications. - Await pathology results. - Repeat colonoscopy in 5 years for surveillancebased on pathology results. - Return to referring physician as previously scheduled. Medicines: Monitored Anesthesia Care Complications: No immediate complications. Estimated Blood Loss: Estimated blood loss was minimal. Procedure: Pre-Anesthesia Assessment: - Prior to the procedure, a History and Physicalwas performed, and patient medications and allergieswere reviewed. The patient is competent. The risks and benefits of the procedure and the sedation optionsand risks were discussed with the patient. Allquestions were answered and informed consent was obtained. Patient identification and proposed procedure were verified by the physician, the egg grader and the mechanical laboratory technician in the endoscopy suite. Mental Status Examination: normal. Prophylactic Antibiotics: The patient does not require prophylactic antibiotics. Prior Anticoagulants: The patient has taken no anticoagulant or antiplatelet agents. Afterreviewing the risks and benefits, the patient was deemed in satisfactory condition to undergo the procedure.The anesthesia plan was to use monitored anesthesiacare (MAC). Immediately prior to administration of medications, the patient was re-assessed foradequacy to receive sedatives. The heart rate, respiratory rate, oxygen saturations, blood pressure, adequacyof pulmonary ventilation, and response to care were monitored throughout the procedure. The physical status of the patient was re-assessed after the procedure. The benefits, risks and alternatives of theprocedure and sedation were discussed and informed consentwas obtained. All questions were answered. Please referto the signed informed consent document in the medical record. The bowel preparation used was Miralax via split dose instruction. The bowel preparation usedwas bisacodyl tablets via split dose instruction. The scope was passed under direct vision. The Pediatric Colonoscope [id number] was introduced through the anus and advanced to the the terminal ileum. The colonoscopy was performed without difficulty. The patient tolerated the procedurewell. The quality of the bowel preparation was good.Bowel prep was administered using a split dose. Findings: Hemorrhoids were found on perianal exam. The terminal ileum appeared normal. External and internal hemorrhoids were found during retroflexion. The exam was otherwise without abnormality. The colon (entire examined portion) revealed excessive looping. Advancing the scope required applying abdominal pressure. Biopsies for histology were taken with a cold forceps from the entire colon for evaluation of microscopic colitis. Divina Shaw M.D. 11/27/2024 8:39:15 AM Number of Addenda: 0 Note Initiated On: 11/27/2024 7:10 AM Procedure Code(s): --- Professional --- 82189, Colonoscopy, flexible; with biopsy, single or multiple --- Technical --- 87703, Colonoscopy, flexible; with biopsy, single or multiple Diagnosis Code(s): --- Professional --- K64.8, Other hemorrhoids R19.5, Other fecal abnormalities --- Technical --- K64.8, Other hemorrhoids R19.5, Other fecal abnormalities CPT copyright 2020 [employer]. All rights reserved. The codes documented in this report are preliminary and upon shredding machine operator reviewmay be revised to meet current compliance requirements. Recognized by the [employer] for promoting quality in endoscopy us Divina Shaw MD ENDOSCOPY PROCEDURES Final Resul t * eGFR (10/23/2024 12:00 PM CLAIMS INVESTIGATOR) eGFR 85 >=60 mL/min/1. 73 m2 Comment: Interpretive Data Reference Interval Normal >/= 90 mL/min/1.73m2 Mildly decreased* 60 - 89 mL/min/1.73m2 Mildly to moderately decreased 45 - 59 mL/min/1.73m2 Moderately to severely decreased 30 - 44 mL/min/1.73m2 Severely decreased 15 - 29 mL/min/1.73m2 Kidney Failure < 15 mL/min/1.73m2 *Relative to young adult level Estimated glomerular filtration rate is determined by the 2020 CKD-EPI equation recommended by the National Kidney Foundation (A Unifying Approach to GFR Estimation: Recommendations of the NKF-ASK Task Force on Reassessing the Inclusion of Race in Diagnosing Kidney Disease, JASN 2020). The CKD-EPI equation should not be used for patients with unstable renal function and has not been validated in children and those over 70. Current interpretive data was last reviewed 2021. Blood 10/23/2024 12:0 0 PM CLAIMS INVESTIGATOR 10/23/2024 8:49 PM CLAIMS INVESTIGATOR us Eusebio Schaefer MD LAB BLOOD ORDERABLES Final Result [facility] [address] Department [place] [address] * Differential, auto (10/23/2024 12:00 PM CLAIMS INVESTIGATOR) Neutrophil abs 5.2 1.5 - 6.5 K/cumm Imm gran abs 0.0 0.0 - 0.1 K/cumm [facility] Lymphocyte abs 1.5 0.8 - 3.3 K/cumm [facility] Monocyte abs 0.7 0.2 - 0.8 K/cumm [facility] Eosinophil abs 0.2 0.0 - 0.5 K/cumm [facility] Basophil abs 0.0 0.0 - 0.1 K/cumm [facility] Neutrophil pct 67.3 % [facility] Comment: Interpretive Data Percent cell count reference ranges are not reported, since discordance with absolute values may lead to misinterpretation of CBC data. Current Interpretive Data was last revised on 2018. Imm gran pct 0.4 % [facility] Comment: Interpretive Data Percent cell count reference ranges are not reported, since discordance with absolute values may lead to misinterpretation of CBC data. Current Interpretive Data was last revised on 2018. Lymphocyte pct 19.3 % [facility] Comment: Interpretive Data Percent cell count reference ranges are not reported, since discordance with absolute values may lead to misinterpretation of CBC data. Current Interpretive Data was last revised on 2018. Monocyte pct 9.6 % [facility] Comment: Interpretive Data Percent cell count reference ranges are not reported, since discordance with absolute values may lead to misinterpretation of CBC data. Current Interpretive Data was last revised on 2018. Eosinophil pct 3.1 % [facility] Comment: Interpretive Data Percent cell count reference ranges are not reported, since discordance with absolute values may lead to misinterpretation of CBC data. Current Interpretive Data was last revised on 2018. Basophil pct 0.3 % [facility] Comment: Interpretive Data Percent cell count reference ranges are not reported, since discordance with absolute values may lead to misinterpretation of CBC data. Current Interpretive Data was last revised on 2018. Blood 10/23/2024 12:0 0 PM CLAIMS INVESTIGATOR 10/23/2024 8:33 PM CLAIMS INVESTIGATOR Eusebio Schaefer MD LAB BLOOD ORDERABLES Final Result Performing Organization Address [facility] Co de Phone Number [facility] [place] [address] Department [employer] [place] [address] * (ABNORMAL) CBC with auto differential (10/23/2024 12:00 PM CLAIMS INVESTIGATOR) WBC 7.7 3.8 - 9.9 K/cumm Hgb 13.4 11.9 - 15.5 g/dL [facility] Hct 44.5 35.6 - 45.5 % [facility] Plt 290 150 - 400 K/cumm [facility] MPV 11.7 9.1 - 12.3 fL [facility] RBC 5.03 3.90 - 5.20 M/cumm [facility] MCV 88.5 81.3 - 96.4 fL [facility] MCH 26.6(L) 27.1 - 33.3 pg [facility] MCHC 30.1(L) 32.3 - 35.7 g/dL [facility] RDW CV 13.7 11.1 - 14.9 % [facility] RDW SD 44.4 35.7 - 48.1 fL [facility] NRBC abs 0.00 0.00 - 0.01 K/cumm [facility] Blood 10/23/2024 12:0 0 PM CLAIMS INVESTIGATOR 10/23/2024 8:33 PM CLAIMS INVESTIGATOR Eusebio Schaefer MD LAB BLOOD ORDERABLES Final Result Performing Organization Address [facility] Co de Phone Number [place] [address] [place] [address] * (ABNORMAL) Lipid panel (10/23/2024 12:00 PM CLAIMS INVESTIGATOR) Cholesterol 213(H) 30 - 199 mg/dL Comment: Interpretive Data Ages < or = 19 years Acceptable: <170 mg/dL Borderline high: 170-199 mg/dL High: >or= 200 mg/dL Ages > or = 20 years Desirable: <200 mg/dL Borderline high: 200-239 mg/dL High: >or= 240 mg/dL Literature References: 1. Expert Panel on Integrated Guidelines for Cardiovascular Health and Risk Reduction in Children and Adolescents. Pediatrics 2011;128:S213 2. NCEP Expert Panel. Circulation 2004;110:227 Current Interpretive Data was last revised on 2018. Triglycerides 215(H) <=149 mg/dL [facility] Comment: Interpretive Data Ages < or = 9 years Acceptable: <75 mg/dL Borderline high: 75-99 mg/dL High: >or= 100 mg/dL Ages 10 to 20 years Acceptable: <90 mg/dL Borderline high: 90-129 mg/dL High: >or= 130 mg/dL Ages > or = 20 years Desirable: <150 mg/dL Borderline high: 150-199 mg/dL High: 200-499 mg/dL Very high: >or= 499 mg/dL Literature References: 1. Expert Panel on Integrated Guidelines for Cardiovascular Health and Risk Reduction in Children and Adolescents. Pediatrics 2011;128:S213 2. NCEP Expert Panel. Circulation 2004;110:227 Current Interpretive Data was last revised on 2018. HDL 72 >=40 mg/dL [facility] Comment: Interpretive Data Ages < or = 19 years Acceptable: >45 mg/dL Borderline low: 40-45 mg/dL Low: <40 mg/dL Ages > or = 20 years Desirable: >or= 60 mg/dL Low: <40 mg/dL Literature References: 1. Expert Panel on Integrated Guidelines for Cardiovascular Health and Risk Reduction in Children and Adolescents. Pediatrics 2011;128:S213 2. NCEP Expert Panel. Circulation 2004;110:227 Current Interpretive Data was last revised on 2018. LDL, calculated 105 <=129 mg/dL [facility] Comment: Interpretive Data Ages < or = 19 years Acceptable: <110 mg/dL Borderline high: 110-129 mg/dL High: >or= 130 mg/dL Ages > or = 20 years Optimal: <100 mg/dL Near optimal: 100-129 mg/dL Borderline high: 130-159 mg/dL High: >160 mg/dL Calculated using the Boy LDL-C estimating equation. This equation was implemented on 2024. Prior to this date LDL-C was estimated using the Friedewald equation. Literature References: 1. Expert Panel on Integrated Guidelines for Cardiovascular Health and Risk Reduction in Children and Adolescents. Pediatrics 2011;128:S213 2. NCEP Expert Panel. Circulation 2004;110:227 3. Boy Orlando et al. SAUL Cardiol. 2019February 13;5(5):540-548. doi: 10.1001/[email or web address] Current Interpretive Data was last revised on 2024. Non-HDL Cholesterol 141 mg/dL [facility] Comment: Interpretive Data Ages < or = 19 years Acceptable: <120 mg/dL Borderline high: 120-144 mg/dL High: >145 mg/dL Ages > or = 20 years When triglycerides are >200 mg/dL, Non-HDL cholesterol is a secondary target of therapy with treatment goals that are 30 mg/dL greater than the LDL cholesterol target. Literature References: 1. Expert Panel on Integrated Guidelines for Cardiovascular Health and Risk Reduction in Children and Adolescents. Pediatrics 2011;128:S213 2. NCEP Expert Panel. Circulation 2004;110:227 Current Interpretive Data was last revised on 2018. Chol/HDL ratio 3 [facility] Blood 10/23/2024 12:0 0 PM CLAIMS INVESTIGATOR 10/23/2024 8:33 PM CLAIMS INVESTIGATOR us Eusebio Schaefer MD LAB BLOOD ORDERABLES Final Result [facility] [address] [address] Department [place] [address] * (ABNORMAL) Comprehensive metabolic panel (10/23/2024 12:00 PM CLAIMS INVESTIGATOR) Sodium 142 135 - 145 mmol/L Potassium, pl 4.5 3.3 - 4.9 mmol/L [facility] Chloride 104 97 - 110 mmol/L [facility] CO2 25 22 - 32 mmol/L [facility] Anion gap 13 2 - 15 mmol/L [facility] BUN 12 6 - 25 mg/dL [facility] Creatinine 0.76 0.60 - 1.10 mg/dL [facility] Glucose 87 70 - 199 mg/dL [facility] Comment: Interpretive Data Fasting glucose >/= 126 mg/dl is diagnostic for diabetes. Fasting is defined as no caloric intake for at least 8 hours. Fasting glucose between 100 mg/dl to 125 mg/dl is diagnostic of prediabetes. In a patient with classic symptoms of hyperglycemia or hyperglycemic crisis, a random glucose >/= 200 mg/dl is diagnostic for diabetes. In the absence of unequivocal hyperglycemia, results should be confirmed by repeat testing. The classification and Diagnosis of Diabetes Diabetes Care 202; 46: S19-S40. Current interpretive data was last revised 2022. Calcium 9.8 8.5 - 10.3 mg/dL [facility] Bilirubin, total 0.3 0.1 - 1.2 mg/dL [facility] Protein, pl 7.5 6.5 - 8.5 g/dL [facility] Albumin 4.6 3.5 - 5.0 g/dL [facility] Alk phos 182(H) 40 - 130 Units/L [facility] ALT 27 7 - 45 Units/L [facility] AST 27 10 - 45 Units/L [facility] Blood 10/23/2024 12:0 0 PM CLAIMS INVESTIGATOR 10/23/2024 8:33 PM CLAIMS INVESTIGATOR Eusebio Schaefer MD LAB BLOOD ORDERABLES Final Result [facility] [address] [address] Department [place] [address] * DEXA SCAN (07/21/2022 11:13 AM CDT) Historical Provider HEALTH MAINTENANCE Final Result * Hepatitis C antibody (06/30/2020 11:44 AM CDT) Hep C Ab Nonreactive Nonreactive [facility] Comment:Antibodies to HCV no t detected. Does NOT exclude the possibility of recent exposure to HCV. Blood specimen (specimen) 06/30/2020 11:44 AM CDT 06/30/2020 11:51 AM CDT Nathan Barotn MD LAB MICROBIOLOGY - GENERAL ORDER TERRANCE Edited Result - Final [facility] Department [place] [address] from Last 3 Months or Most Recently Relevant to Health Maintenance Insurance MEDICARE SOLUTIONS [facility] MEDICARE SOLUTIONS MEDICARE [employer] [facility] Advance Directives For more information, please contact: [phone] * Full Code (Latest Code Status on File) Date Activated Date Inactivated Comments 11/27/2024 7:14 AM 11/27/2024 1:26 PM * Full Code Date Activated Date Inactivated Comments 11/27/2024 7:14 AM 11/27/2024 7:14 AM Care Teams Flasher Adjuster Relationship Specialty Start Date End Date Eusebio Schaefer MD [address] [place] [address] PCP - General Family Medicine 04/17/24
--- OUTSIDE RECORDS SUMMARY | 2024-12-09 17:30 | XMS_ITS | Clinical Summary ---
Author Organization [facility] Address [address] [place] [phone] Phone Care Team Providers Care Retirement Assistant Name Role Phone Epifanio Cavanaugh MD Primary Care Provider [phone] Allergies No known active allergies Medications metoprolol tartrate (LOPRESSOR) 50 mg tablet Take 25 mg by mouth 2 times daily . Active cetirizine (ZYRTEC) 10 mg tablet Take 10 mg by mouth daily. Active atorvastatin (LIPITOR) 20 mg tablet Take 10 mg by mouth Daily LATE . Active omeprazole (PRILOSEC) 20 mg Capsule, Delayed Release(E.C.) Take 20 mg by mouth daily. Active hydrochlorothiaz nicolas 25 mg tablet Take 25 mg by mouth daily. Active losartan (COZAAR) 25 mg tablet Take 25 mg by mouth daily. Active FLUoxetine (PROZAC) 20 mg tablet Take 20 mg by mouth daily. Active amitriptyline (ELAVIL) 25 mg tablet Take 25 mg by mouth daily at bedtime. 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 Gender Identity Not on file Sexual Orientation Not on file Last Filed Vital Signs Vital Sign Reading Time Taken Comments Blood Pressure 140/78 04/04/2016 3:08 PM CDT Pulse 58 04/04/2016 3:08 PM CDT Temperature - - Respiratory Rate - - Oxygen Saturation - - Inhaled Oxygen Concentration - - Weight 70.8 kg (156 lb) 04/04/2016 3:08 PM CDT Height 154.9 cm (5' 1 ) 04/04/2016 3:08 PM CDT Body Mass Index 29.48 04/04/2016 3:08 PM CDT Plan of Treatment Health Maintenance Due Date Last Done Comments DTAP/TDAP/TD VACCINES (1 - Tdap) 1974 BREAST CANCER SCREENING 1995 COLORECTAL SCREENING 2000 Colorectal Cancer Screening 2000 FIT-DNA Q 3 years 2000 FIT/FOBT Q 1 year 2000 Flex Sig/CT Colonography Q 5 years 2000 PNEUMOCOCCAL VACCINE 65+ YEARS (1 of 1 - PCV) 11/21/19 ZOSTER VACCINE (1 of 2) 2005 OSTEOPOROSIS SCREENING 2020 INFLUENZA VACCINE (#1) 2024 RSV VACCINE (60+ or ) (1 - 1-dose 75+ series) 2030 Care Teams Retirement Assistant Relationship Specialty Start Date End Date Epifanio Cavanaugh MD [address] [place] [address] PCP - General Family Practice 11/30/15
--- OUTSIDE RECORDS SUMMARY | 2024-12-09 17:30 | XMS_ITS | Clinical Summary ---
Author Organization [facility] Address [address] [place] [address] Care Team Providers Care Sheet Heater Helper Name Role Phone Eusebio Schaefer MD Primary Care Provider Allergies No known active allergies Medications cholestyramine [...] 05/2025 Assessment & Plan (10/23/2024 3:34 PM CUSTOM DRESSMAKER): A(n) yearly Medicare Annual Wellness Visit has [...] reflux disease 01/30/2017 Elevated transaminase level 11/30/2015 Encounters Date Type Department Care Team Description 11/27/2024 7:55 AM CUSTOM DRESSMAKER Anesthesia Event [address] [address] Quentin Michaud MD Zirkelbach, Cecilia A., CRNA 11/27/2024 7:25 AM CUSTOM DRESSMAKER - 11/27/2024 7:55 AM CUSTOM DRESSMAKER Surgery [address] [address] Divina Shaw MD COLON BIOPSY 11/27/2024 7:04 AM CUSTOM DRESSMAKER - 11/27/2024 9:26 AM CUSTOM DRESSMAKER Hospital Encounter [address] [address] Divina Shaw MD Positive colorectal cancer screening using Cologuard test; Encounter for screening colonoscopy Discharge Disposition: Discharge to home or self care 10/28/2024 Telephone [facility] Gastroenterology at [address] [place] [address] Divina Shaw MD 10/24/2024 Orders Only [facility] Primary Care at [address] [phone] Eusebio Schaefer MD Hypertension, essential (Primary Dx); Hypercholesterolem ia 10/23/2024 7:51 PM CUSTOM DRESSMAKER - 10/23/2024 11:59 PM CUSTOM DRESSMAKER Hospital Encounter [address] [address] Hypertension, essential; Gastroesophageal reflux disease without esophagitis; Hypercholesterolem ia Discharge Disposition: Discharge to home or self care 10/23/2024 4:00 PM CUSTOM DRESSMAKER Lab [facility] Outpatient Lab at [address] [phone] Encounter for Medicare annual wellness exam (Primary Dx) 10/23/2024 3:15 PM CUSTOM DRESSMAKER Office Visit [facility] Primary Care at [address] [address] Eusebio Schaefer MD Encounter for Medicare annual wellness exam (Primary Dx); Hypertension, essential; Gastroesophageal reflux disease without esophagitis; Hypercholesterolem ia; Screening for osteoporosis; Positive colorectal cancer screening using Cologuard test; Recurrent major depressive disorder, in full remission (CMS/HCC) (HCC); Other irritable bowel syndrome from Last 3 Months Immunizations Immunization Administration Dates Next Due Influenza, Quadrivalent, Hig h Dose, Preservative Free, Intrr 08/04/2023,07/29/2022,07/31/2021 Influenza, Quadrivalent, Spl it, Preservative Free, Intramuscular 08/14/2020,08/27/2019,08/20/2018,07/08 Influenza, Split 07/02/2013 Influenza, Trivalent, High D ose, Split, Preservative Free, Intramuscular 07/02/2024 Influenza, Unspecified 07/02/2024 Pfizer SARS-CoV-2 Monovalent Vaccination (12+ Yrs) PURPLE 01/07/2021,12/17/2020 Pneumococcal Conjugate Pcv20 08/23/2024,04/17/20 24 Tdap 07/08/2017 ZOSTER Recombinant 08/23/2024 Surgical History Surgery Date Site/Laterality Comments CHOLECYSTECTOMY HYSTERECTOMY GASTRIC FUNDOPLICATION 10/16/2017 - 10/15/2018 TUBAL LIGATION CATARACT EXTRACTION 2018 corrective lens HERNIA REPAIR 2017 ABDOMINAL SURGERY as listed above COLONOSCOPY 10/16/2019 - 10/15/2020 COLONOSCOPY 11/27/2024 Medical History Medical History Date Comments Hypertension Hyperlipidemia Sleep apnea Irritable bowel Hiatal hernia GERD (gastroesophageal reflux disease) Infectious viral hepatitis 1956 as child Infection c-dif August 2018 History of viral hepatitis 1957 in ch ildhood Family History Medical History Relation Name Comments Cancer Father Renato Jones Family history of malignant neoplasm - (Added by TW Conv) Coronary artery disease Father Renato Jones Hypertension Father Renato Jones Family history of hypertension - (Added by TW Conv) Kidney disease Father Renato Jones Stroke Father Renato Jones Hearing loss Mother Shira Heart disease Mother Shira Heart failure Mother Shira Cancer Sister Lilo Relation Name Status Comments Father Renato Jones Mother Shira Sister Lilo Social History Tobacco Use Types Packs/Day Years [...] on file Legal Sex Female 8:12 PM CUSTOM DRESSMAKER Gender Identity Female 02/11/2020 1:13 PM CDT Sexual Orientation Straight 02/11/2020 1: 13 PM CDT 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 Not on file Not on file Not on file Obstetrics History Last Filed Vital Signs Vital Sign Reading Time Taken Comments Blood Pressure 118/63 11/27/2024 9:06 AM CUSTOM DRESSMAKER Pulse 51 11/27/2024 9:06 AM CUSTOM DRESSMAKER Temperature 36.6 C (97.8 F) 11/27/2024 9:06 AM CUSTOM DRESSMAKER Respiratory Rate 18 11/27/2024 9:06 AM CUSTOM DRESSMAKER Oxygen Saturation 97% 11/27/2024 9:06 AM CUSTOM DRESSMAKER Inhaled Oxygen Concentration - - Weight 66.7 kg (147 lb) 11/27/2024 7:19 AM CUSTOM DRESSMAKER Height 152.4 cm (5') 11/27/2024 7:19 AM CUSTOM DRESSMAKER Body Mass Index 28.71 11/27/2024 7:19 AM CUSTOM DRESSMAKER Plan of Treatment Health Maintenance Due Date Last Done Comments Breast Cancer Screening-Mammogram 1955 Osteoporosis Screening-Bone Density Scan 07/21/2024 07/21/2022 Zoster Vaccine (2 of 2) 10/18/2024 08/23/2024 Covid-19 Vaccine (2023-2 5 season) 2024 07/02/2024, 08/04/2023, 09/29/2022, Additional history exists Depression Screening 10/23/2025 10/23/2024, 04/17/20 24 Well Visit 65+ 10/23/2025 10/23/2024 Fall Risk Assessment 11/27/2025 11/27/2024, 10/23/2024, 04/17/2024 DTaP/Tdap/Td Vaccine (2 - Td or Tdap) 07/08/2027 07/08/2017 Colon Cancer Screening-Colonoscopy 11/27/2034 11/27/2024, 06/12/2020 Hepatitis C Screening Completed 06/30/2020 Hepatitis B Screening Completed 04/17/2024 Influenza Vaccine Completed 07/02/2024, , 08/04/2023, Additional history exists Pneumococcal vaccine 65+ Completed 08/23/2024, 0712/2023 Colon Cancer Screening-CT Colonography Discontinued 11/27/2024, 06/12/2020 Colon Cancer Screening-DNA Stool Discontinued 11/27/19 25, 06/12/2020 Colon Cancer Screening-FIT Discontinued 11/27/2024, Colon Cancer Screening-Sigmoidoscopy Discontinued 11/27/2024, 06/12/2020 Procedures Procedure Name Priority Date/Time Associated Diagnosis Comments SURGICAL PATHOLOGY STAT 11/27/2024 11 :29 AM CUSTOM DRESSMAKER Positive colorectal cancer screening using Cologuard test Encounter for screening colonoscopy COLON BIOPSY 11/27/2024 7:49 AM CUSTOM DRESSMAKER Positive colorectal cancer screening using Cologuard test Encounter for screening colonoscopy COLONOSCOPY 11/27/2024 7:10 AM CUSTOM DRESSMAKER EGFR Routine 10/23/2024 12:00 PM CUSTOM DRESSMAKER Hypertension, essential DIFFERENTIAL AUTO Routine 10/23/2024 12: 00 PM CUSTOM DRESSMAKER Hypertension, essential Gastroesophageal reflux disease without esophagitis LIPID PANEL Routine 10/23/2024 12:00 PM CUSTOM DRESSMAKER Hypercholesterolemi a COMPREHENSIVE METABOLIC PANEL Routine 10/23/2024 12:00 PM CUSTOM DRESSMAKER Hypertension, essential CBC WITH AUTO DIFFERENTIAL Routine 10/23/2024 12:00 PM CUSTOM DRESSMAKER Hypertension, essential Gastroesophageal reflux disease without esophagitis HM DEXA SCAN Routine 07/21/2022 11:13 AM CDT HEPATITIS C ANTIBODY Routine 06/30/2020 11:44 AM CDT Transaminitis from Last 3 Months or Most Recently Relevant to Health Maintenance Results * Surgical pathology (11/27/2024 11:29 AM CUSTOM DRESSMAKER) Tissue (Colon, Biopsy) 11/27/2024 8:33 AM CUSTOM DRESSMAKER Narrative PATHOLOGY [facility] - 11/28/2024 2:37 PM CUSTOM DRESSMAKER [facility] results best viewed via link to PDF [facility] Department of Pathology [address] [place] [address] Note to Patients: This report may contain [...] Final Report Patient Name: GINA ROGERS Address: [address] [place] [address] Gender: F : 1955 (Age: 69) Service: Gastro Location: [facility] Hospital #: [id number] Patient Type: [facility] Taken: 11/27/2024 Received: 11/27/2024 Accessioned: 11/27/2024 Reported: [...] a single formalin filled container labeled GINA ROGERS and dylan . It is 5 fragments of [...] determined by the Surgical Pathology Department at [facility] as part of an ongoing quality coordinator program and in compliance with federally mandated [...] characteristics determined by the Surgical Pathology Department [facility]. It has not been cleared or approved by the U. S. Food and Drug Administration. Note for decalcified specimens: This assay has not been validated on decalcified tissues. Results should be interpreted with caution given the possibility of false negativity on decalcified specimens Divina Shaw MD LAB PATHOLOGY ORDERABLES Final R esult PATHOLOGY [facility] [address] [place], [place] [id number] * Colonoscopy (11/27/2024 7:10 AM CUSTOM DRESSMAKER) Anatomical Region Laterality Modality Other Narrative Procedure Note Divina Shaw MD - 11/27/2024 7:10 AM CST [facility] Patient Name: Gina Rogers Procedure Date: 11/27/2024 7:10 AM Date of : 1955 Admit Type: Outpatient Age: 69 Gender: Female Attending MD: Divina Shaw M.D. Room: [facility] ENDOSCOPY ROOM 2 Note Status: Finalized Patient [...] procedure were verified by the physician, the arbor end mainspring former and the refresh technician in the endoscopy suite. Mental Status [...] passed under direct vision. The Pediatric Colonoscope [id number] was introduced through the anus and advanced [...] 7:10 AM Procedure Code(s): --- Professional --- 26653, Colonoscopy, flexible; with biopsy, single or multiple --- Technical --- 16770, Colonoscopy, flexible; with biopsy, single or multiple Diagnosis Code(s): --- Professional --- K64.8, Other hemorrhoids R19.5, Other fecal abnormalities --- Technical --- K64.8, Other hemorrhoids R19.5, Other fecal abnormalities CPT copyright 2020 [employer]. All rights reserved. The codes documented in this report are preliminary and upon auditing coder reviewmay be revised to meet current compliance requirements. Recognized by the [employer] for promoting quality in endoscopy Divina Shaw MD ENDOSCOPY PROCEDURES Final Resul t * eGFR (10/23/2024 12:00 PM CUSTOM DRESSMAKER) eGFR 85 >=60 mL/min/1. 73 m2 Comment: [...] reviewed 2021. Blood 10/23/2024 12:0 0 PM CUSTOM DRESSMAKER 10/23/2024 8:49 PM CUSTOM DRESSMAKER Eusebio Schaefer MD LAB BLOOD ORDERABLES Final Result [facility] [address] [address] [place] [address] * Differential, auto (10/23/2024 12:00 PM CUSTOM DRESSMAKER) Neutrophil abs 5.2 1.5 - 6.5 K/cumm Imm gran abs 0.0 0.0 - 0.1 K/cumm [facility] Lymphocyte abs 1.5 0.8 - 3.3 K/cumm [facility] Monocyte abs 0.7 0.2 - 0.8 K/cumm [facility] Eosinophil abs 0.2 0.0 - 0.5 K/cumm [facility] Basophil abs 0.0 0.0 - 0.1 K/cumm [facility] Neutrophil pct 67.3 % [facility] Comment: Interpretive Data Percent cell count reference ranges are not reported, since discordance with absolute values may lead to misinterpretation of CBC data. Current Interpretive Data was last revised on 2018. Imm gran pct 0.4 % [facility] Comment: Interpretive Data Percent cell count reference ranges are not reported, since discordance with absolute values may lead to misinterpretation of CBC data. Current Interpretive Data was last revised on 2018. Lymphocyte pct 19.3 % [facility] Comment: Interpretive Data Percent cell count reference ranges are not reported, since discordance with absolute values may lead to misinterpretation of CBC data. Current Interpretive Data was last revised on 2018. Monocyte pct 9.6 % [facility] Comment: Interpretive Data Percent cell count reference ranges are not reported, since discordance with absolute values may lead to misinterpretation of CBC data. Current Interpretive Data was last revised on 2018. Eosinophil pct 3.1 % [facility] Comment: Interpretive Data Percent cell count reference ranges are not reported, since discordance with absolute values may lead to misinterpretation of CBC data. Current Interpretive Data was last revised on 2018. Basophil pct 0.3 % CERNER Comment: Interpretive Data Percent cell count reference ranges are not reported, since discordance with absolute values may lead to misinterpretation of CBC data. Current Interpretive Data was last revised on 2018. Blood 10/23/2024 12:0 0 PM CUSTOM DRESSMAKER 10/23/2024 8:33 PM CUSTOM DRESSMAKER Eusebio Schaefer MD LAB BLOOD ORDERABLES Final Result [facility] [address] [address] [place] [address] * (ABNORMAL) CBC with auto differential (10/23/2024 12:00 PM CUSTOM DRESSMAKER) WBC 7.7 3.8 - 9.9 K/cumm Hgb 13.4 11.9 - 15.5 g/dL [facility] Hct 44.5 35.6 - 45.5 % [facility] Plt 290 150 - 400 K/cumm [facility] MPV 11.7 9.1 - 12.3 fL [facility] RBC 5.03 3.90 - 5.20 M/cumm [facility] MCV 88.5 81.3 - 96.4 fL [facility] MCH 26.6(L) 27.1 - 33.3 pg [facility] MCHC 30.1(L) 32.3 - 35.7 g/dL [facility] RDW CV 13.7 11.1 - 14.9 % [facility] RDW SD 44.4 35.7 - 48.1 fL [facility] NRBC abs 0.00 0.00 - 0.01 K/cumm [facility] Blood 10/23/2024 12:0 0 PM CUSTOM DRESSMAKER 10/23/2024 8:33 PM CUSTOM DRESSMAKER Eusebio Schaefer MD LAB BLOOD ORDERABLES Final Result [facility] [address] [facility] [place] [address] * (ABNORMAL) Lipid panel (10/23/2024 12:00 PM CUSTOM DRESSMAKER) Cholesterol 213(H) 30 - 199 mg/dL Comment: [...] revised on 2024. Non-HDL Cholesterol 141 mg/dL [facility] Comment: Interpretive Data Ages [...] last revised on 2018. Chol/HDL ratio 3 [facility] Blood 10/23/2024 12:0 0 PM CUSTOM DRESSMAKER 10/23/2024 8:33 PM CUSTOM DRESSMAKER us Eusebio Schaefer MD LAB BLOOD ORDER[place]LES [place] [address] [address] [place] [address] * (ABNORMAL) Comprehensive metabolic panel (10/23/2024 12:00 PM CUSTOM DRESSMAKER) Sodium 142 135 - 145 mmol/L Potassium, [...] classification and Diagnosis of Diabetes Diabetes Care 2021; 46: S19-S40. Current interpretive data was last [...] [facility] Blood 10/23/2024 12:0 0 PM CUSTOM DRESSMAKER 10/23/2024 8:33 PM CUSTOM DRESSMAKER us Eusebio Schaefer MD LAB BLOOD ORDERABLES [place] [address] [address] [place] [address] * DEXA SCAN (07/21/2022 11:13 AM CDT) Historical Provider HEALTH MAINTENANCE Final Result * Hepatitis C antibody (06/30/2020 11:44 AM CDT) Hep C Ab Nonreactive Nonreactive CORN[facility] Comment:Antibodies to HCV no t detected. Does NOT exclude the possibility of recent exposure to HCV. Blood specimen (specimen) 06/30/2020 11:44 AM CDT 06/30/2020 11:51 AM CDT Nathan Barton MD LAB MICROBIOLOGY - GENERAL ORDER TERRANCE Edited Result - Final CORN[facility] [place] [address] from Last 3 Months or Most Recently Relevant to Health Maintenance Insurance MEDICARE SOLUTIONS [facility] [place] [address] MEDICARE SOLUTIONS [facility] Advance Directives For more information, please contact: [phone] * Full Code (Latest Code Status on File) Date Activated Date Inactivated Comments 11/27/2024 7:14 AM 11/27/2024 1:26 PM * Full Code Date Activated Date Inactivated Comments 11/27/2024 7:14 AM 11/27/2024 7:14 AM Care Teams Sheet Heater Helper Relationship Specialty Start Date End Date Eusebio Schaefer MD [address] [place] [address] PCP - General Family Medicine 04/17/24
--- OUTSIDE RECORDS SUMMARY | 2024-12-09 17:30 | XMS_ITS | Encounter Summary ---
Author Organization [facility] Address [address] [place] [address] Phone Care Team Providers Care Medical Program Specialist Name Role Phone Epifanio Cavanaugh MD Primary Care Provider [phone] Eusebio Schaefer MD Primary Care Provider [phone] Encounter Details Date Type Department Care Team (Latest Contact Info) Description 05/10/2017 Orders Only [facility] Scanning, Provider Social History Tobacco Use Types Packs/Day Years Used Date Smoking Tobacco: Never Comments Unknown Sex and Gender Information Value Date Recorded Sex Assigned at Not on file 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 Gender Identity Female 02/11/2020 1:13 PM CDT Sexual Orientation Straight 02/11/2020 1: 13 PM CDT documented as of this encounter Plan of Treatment Not on file documented as of this encounter Procedures Procedure Name Priority Date/Time Associated Diagnosis Comments CARDIOLOGY DOCUMENT SCAN 05/10/2017 documented in this encounter Results * SCAN - CARDIOLOGY (05/10/2017) Anatomical Region Laterality Modality Other us Provider Scanning CV CARDIAC SERVICES PROCEDURES Final Result documented in this encounter Visit Diagnoses Not on filedocumented in this encounter Care Teams Medical Program Specialist Relationship Specialty Start Date End Date Epifanio Cavanaugh MD PCP - General 02/23/17 04/16/24 Eusebio Schaefer MD [facility] [place] [address] PCP - General Family Medicine 04/17/24 documented as of this encounter
--- OUTSIDE RECORDS SUMMARY | 2024-12-09 17:30 | XMS_ITS | Patient Health Summary ---
Author Organization [facility] Address [address] [place] [address] Care Team Providers Care Mapping Supervisor Name Role Phone Epifanio Cavanaugh MD Primary Care Provider [phone] [facility],non-owned Affiliates and Associated Physician Practices is amultiple site organization consisting of ambulatory clinics and hospital sitesin [place], [place], [place] and [place]. This disclosure is being madepursuant to the Care Everywhere program and may not contain all information available regarding this patient. Last updated 18.[facility] Allergies No known active allergies Immunizations * INFLUENZA VACCINE, QUADR. (FLUZONE; FLULAVAL; FLUARIX; AFLURIA QUADRIVALENT; 6MO+), 0.5 ML (IIV4)(Given 08/27/2019, 07/08/2017) * TDAP (7yrs+)(Given 07/08/2017) Social History Tobacco Use Types Packs/Day Years Used Date Smoking Tobacco: Never Assessed Sex and Gender Information Value Date Recorded Sex Assigned at Not on file Gender Identity Not on file Sexual Orientation Not on file Care Teams Mapping Supervisor Relationship Specialty Start Date End Date Epifanio Cavanaugh MD [address] [place], [place] [id number] PCP - General Family Medicine 07/08/17
== END 2024-12-09 14:59 | disposition home or self-care (01) ==
LOC: ANHIMG 15:00
PROVIDERS: PCP Family Medicine; Visit Provider Family Medicine
DX: Z12.31 Encounter for screening mammogram for malignant neoplasm of breast (principal)
CPT/HCPCS: 77063; 77067

== ENCOUNTER 2025-02-10 14:39 | Outpatient (CLI) | payer MEDICARE, OTHER, SELFPAY ==
--- NOTE | ~2025-02-10 | DEXA_ITS ---
Bone Density Report Name: FARIDEH MATHEWS Age: 69 Sex: Female Ethnicity: White Date of : 1955 Indication: postmenopausal; screening for osteoporosis; prior fracture; hysterectomy; Referring Provider: LIZABETH, RICARDO Hernandez Study: Bone densitometry was performed. Exam Date: February 10, 2025 Accession number: [id number] Bone Density: Region BMD T-score Z-score Classification AP Spine(L1-L4) 1.064 0.2 2.2 Normal Femoral Neck (Left) 0.771 -0.7 1.0 Normal Total Hip (Left) 0.855 -0.7 0.7 Normal Femoral Neck (Right) 0.787 -0.6 1.2 Normal Total Hip (Right) 0.790 -1.2 0.2 Osteopenia Total Hip Mean 0.823 -1.0 0.5 Normal World Health Organization criteria for BMD impression classify patients as: Normal (T-score at or above -1.0), Osteopenia (T-score between -1.0 and -2.5), or Osteoporosis (T-score at or below -2.5). 10-year Fracture Risk: FRAX not reported because: Prior hip or vertebral fracture Previous Exams: Region Exam Age BMD T-score BMD Change BMD Change Date g/cm2 vs Baseline vs Previous AP Spine (L1-L4) 02/10/2025 69 1.064 0.2 0.025 (2.4%)* 0.025 (2.4%)* 07/21/2022 66 1.039 -0.1 Total Hip(Left) 02/10/2025 69 0.855 -0.7 -0.029 (-3.3%) -0.029 (-3.3%) 07/21/2022 66 0.884 -0.5 Total Hip(Right) 02/10/2025 69 0.790 -1.2 -0.104 (-11.6% -0.104 (-11.6% 07/21/2022 66 0.894 -0.4 *Denotes significance at 95% confidence level, LSC for AP Spine = 0.022 g/cm2, LSC for Total Hip = 0.027 g/cm2 Clinical Information Provided by Patient: Have had a previous hip or vertebral fracture Has had a low trauma fracture Has used the following medications: Vitamin D, Calcium Has the following medical conditions: Hysterectomy Patient maximum height was 62 Menopause Age: 60 Drinks caffeinated beverages Onset of menses at age 14 Number of children 3 Impression: The patient has low bone mass, based on the Right Total Hip T-score. The patient has risk factors, including: previous fracture. The BMD for the Total Hip(Left) decreased, changing by -3.3% since the last DXA exam. The BMD for the Total Hip(Right) decreased, changing by -11.6% since the last DXA exam. Discussion: INCREASED RISK OF FRACTURE DUE TO HISTORY OF FRACTURE. The patient's previous fracture puts the patient at high risk of a future fracture. In untreated patients, the risk of osteoporotic fracture increases approximately two-fold for each 1.0 SD decrease in T-score. Low bone density is not the only risk factor for fracture; also consider factors such as patient's age, frailty or poor health, risk of falling, risk of injury, previous osteoporotic fracture, family history of osteoporosis, cigarette smoking, low body weight, etc. Not everyone with a low trauma fracture has osteoporosis; osteomalacia and other metabolic bone disorders should also be considered. Patients who have osteoporosis should be evaluated for specific diseases and conditions (secondary causes) that may cause or contribute to bone loss and fracture risk. National Osteoporosis Foundation (NOF) recommends pharmacologic intervention for patients with a prior hip or vertebral fracture regardless of BMD T-score. The patient should follow a healthful lifestyle (good nutrition with adequate calcium and vitamin D, and appropriate weight-bearing exercise). Follow-Up: Consider a repeat BMD and Vertebral Fracture Assessment (VFA) exam in 2 years or sooner if medically necessary, to reassess this patient's status. Reported by: DALE on 02/10/2025 3:09:00 PM. Reviewed, dictated and finalized at location AJosee ALTAMIRANO
--- OUTSIDE RECORDS SUMMARY | 2025-02-10 16:49 | XMS_ITS | Referral Summary ---
Author Organization [facility] Address [address] [place] [address] Care Team Providers Care Coffee Bar Attendant Name Role Phone Eusebio Schaefer MD Primary Care Provider Encounters Date Type Department Care Team Description 01/08/2025 Telephone [facility] Primary Care at [address] [address] Eusebio Schaefer MD PA for Xifaxan 550MG tablets 12/11/2024 Orders Only [facility] Primary Care at [address] [address] Eusebio Schaefer MD 11/27/2024 7:55 AM RESOLUTION MANAGER Anesthesia Event [address] [address] Quentin Michaud MD Zirkelbach, Cecilia A., KUSH 11/27/2024 7:25 AM RESOLUTION MANAGER - 11/27/2024 7:55 AM RESOLUTION MANAGER Surgery [address] [address] Divina Shaw MD COLON BIOPSY 11/27/2024 7:04 AM RESOLUTION MANAGER - 11/27/2024 9:26 AM RESOLUTION MANAGER Hospital Encounter [address] [address] Divina Shaw MD Positive colorectal cancer screening using Cologuard test; Encounter for screening colonoscopy Discharge Disposition: Discharge to home or self care from Last 3 Months Allergies No known active allergies Medications Saad n-Susana-Femi (Probiotic Acidophilus Biobeads) 12.9 mg (2 billion cell) tablet,delayed release (DR/EC) 17.5 billion CFU 9 Active promethazine (PHENERGAN) 25 mg tablet Take 1 tablet (25 mg total) by mouth every 6 (six) hours as needed for nausea or vomiting Active multivitamin with minerals (HAIR,SKIN AND NAILS ORAL) Take by mouth Acti ve cetirizine (ZyrTEC) 10 mg chewable tablet Take 1 tablet (10 mg total) by mouth daily Active tiZANidine (ZANAFLEX) 4 mg tablet Take 1 tablet (4 mg total) by mouth every 6 (six) hours as needed for muscle spasms 30 tablet 2 4 Active sertraline (ZOLOFT) 100 mg tabletIndication s:Recurrent major depressive disorder, in full remission,Other irritable bowel syndrome Take 1 tablet (100 [...] 90 tablet 3 5 10/23/19 26 Active cholestyramine (QUESTRAN) 4 gram packet Take 1 packet by mouth 3 (three) times a day with meals Mix with 8-oz of liquid 90 packet 2 5 Active losartan (COZAAR) 25 mg tabletIndication s:Hypertension, essential Take 1 tablet (25 mg total) by mouth daily 90 tablet 1 5 Active Xifaxan 550 mg tabletIndication s:Other irritable bowel syndrome Take 1 tablet (550 mg total) by mouth 2 (two) times a day for 14 days 28 tablet 5 01/21/20 25 Active Problems Problem Noted Date Diagnosed Date Positive colorectal cancer screening using Colog uard test 10/28/2024 Encounter for screening colonoscopy 10/28/2024 Encounter for Medicare annual wellness exam 05/2025 Assessment & Plan (10/23/2024 3:34 PM RESOLUTION MANAGER): A(n) yearly Medicare Annual Wellness Visit has been performed today. Gina Mathews is not up to date on screening [...] establish care has been performed today. Gina Mathews is not up to date on screening [...] Pcv20 08/23/2024,04/17/20 24 Tdap 07/08/2017 ZOSTER Recombinant 12/09/2024,08/23/2024 Social History Tobacco Use Types Packs/Day Years Used Date Smoking Tobacco: Never Smokeless Tobacco: Never Tobacco Cessation:Counseling Given: Not Answered Alcohol Use Standard Drinks/Week Comments Not Currently 0 (1 standard drink = 0.6 oz pure alcohol) 2 or 3 glasses of wine per year till 2017 AUDIT-C Answer Date Recorded Q1: How often [...] on file Legal Sex Female 8:12 PM RESOLUTION MANAGER Gender Identity Female 02/11/2020 1:13 PM CDT Sexual Orientation Straight 02/11/2020 1: 13 PM CDT 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 Not on file Not on file Not on file Last Filed Vital Signs Vital Sign Reading Time Taken Comments Blood Pressure 118/63 11/27/2024 9:06 AM RESOLUTION MANAGER Pulse 51 11/27/2024 9:06 AM RESOLUTION MANAGER Temperature 36.6 C (97.8 F) 11/27/2024 9:06 AM RESOLUTION MANAGER Respiratory Rate 18 11/27/2024 9:06 AM RESOLUTION MANAGER Oxygen Saturation 97% 11/27/2024 9:06 AM RESOLUTION MANAGER Inhaled Oxygen Concentration - - Weight 66.7 kg (147 lb) 11/27/2024 7:19 AM RESOLUTION MANAGER Height 152.4 cm (5') 11/27/2024 7:19 AM RESOLUTION MANAGER Body Mass Index 28.71 11/27/2024 7:19 AM RESOLUTION MANAGER Plan of Treatment Not on file Procedures Procedure Name Priority Date/Time Associated Diagnosis Comments MAMMOGRAPHY Routine 12/09/2024 12:00 PM RESOLUTION MANAGER SURGICAL PATHOLOGY STAT 11/27/2024 11 :29 AM RESOLUTION MANAGER Positive colorectal cancer screening using Cologuard test Encounter for screening colonoscopy COLON BIOPSY 11/27/2024 7:49 AM RESOLUTION MANAGER Positive colorectal cancer screening using Cologuard test Encounter for screening colonoscopy COLONOSCOPY 11/27/2024 7:10 AM RESOLUTION MANAGER DEXA SCAN Routine 07/21/2022 11:13 AM CDT HEPATITIS C ANTIBODY Routine 06/30/2020 11:44 AM CDT Transaminitis from Last 3 Months or Most Recently Relevant to Health Maintenance Results * MAMMOGRAPHY (12/09/2024 12:00 PM RESOLUTION MANAGER) Mammography Normal Historical Provider MD HEALTH MAINTENANCE Final Result * Surgical pathology (11/27/2024 11:29 AM RESOLUTION MANAGER) Tissue specimen (specimen) (Colon, Biopsy) 11/27/2024 8:33 AM RESOLUTION MANAGER Narrative PATHOLOGY [facility] ([place]) - 11/28/2024 2:37 PM RESOLUTION MANAGER EPIC results best viewed via link to PDF [facility] Department of Pathology [address] [place] [id number] Note to Patients: This report may contain [...] explain the details. Final Report Patient Name: GNIA MATHEWS Address: [address] [place] [address] [address] , [place] [address] Gender: F : 1955 (Age: 69) Service: Gastro Location: [facility] Hospital #: [id number] Patient Type: [facility] Taken: 11/27/2024 Received: 11/27/2024 Accessioned: 11/27/2024 [...] a single formalin filled container labeled GINA Hart . It is 5 fragments of aguirre [...] determined by the Surgical Pathology Department at [facility] as part of an ongoing research quality assurance analyst program and in compliance with federally mandated [...] characteristics determined by the Surgical Pathology Department [facility]. It has not been cleared or approved by the U. S. Food and Drug Administration. Note for decalcified specimens: This assay has not been validated on decalcified tissues. Results should be interpreted with caution given the possibility of false negativity on decalcified specimens Divina Shaw MD LAB PATHOLOGY ORDERABLES Final R esult PATHOLOGY [facility]) [address] [place], [place] [id number] * Colonoscopy (11/27/2024 7:10 AM RESOLUTION MANAGER) Anatomical Region Laterality Modality Other Narrative Procedure Note Divina Shaw MD - 11/27/2024 7:10 AM CST [facility] Patient Name: Gina Mathews Procedure Date: 11/27/2024 7:10 AM Date of : 1955 Admit Type: Outpatient Age: 69 Gender: Female Attending MD: Divina Shaw M.D. Room: [facility] ENDOSCOPY ROOM 2 Note Status: Finalized Patient [...] procedure were verified by the physician, the business objects consultant and the environmental sampling technician in the endoscopy suite. Mental Status [...] passed under direct vision. The Pediatric Colonoscope [id number] was introduced through the anus and advanced [...] 7:10 AM Procedure Code(s): --- Professional --- 94953, Colonoscopy, flexible; with biopsy, single or multiple --- Technical --- 57537, Colonoscopy, flexible; with biopsy, single or multiple Diagnosis Code(s): --- Professional --- K64.8, Other hemorrhoids R19.5, Other fecal abnormalities --- Technical --- K64.8, Other hemorrhoids R19.5, Other fecal abnormalities CPT copyright 2020 [employer]. All rights reserved. The codes documented in this report are preliminary and upon medical coder reviewmay be revised to meet current compliance requirements. Recognized by the [employer] for promoting quality in endoscopy Divina Shaw MD ENDOSCOPY PROCEDURES Final Resul t * HM DEXA SCAN (07/21/2022 11:13 AM CDT) Historical Provider HEALTH MAINTENANCE Final Result * Hepatitis C antibody (06/30/2020 11:44 AM CDT) Hep C Ab Nonreactive Nonreactive [facility] Comment:Antibodies to HCV no t detected. Does NOT exclude the possibility of recent exposure to HCV. Blood specimen (specimen) 06/30/2020 11:44 AM CDT 06/30/2020 11:51 AM CDT Nathan Barton MD LAB MICROBIOLOGY - GENERAL ORDER TERRANCE Edited Result - Final [facility] Department [place] [address] from Last 3 Months or Most Recently Relevant to Health Maintenance Insurance [facility] MEDICARE ADVANTAGE [facility] MED[facility] Address: [facility] [address] [place] [address] [facility] HMO/PPO Address: [address] [address] [place] [address] [facility] UHC MEDICARE ADVANTAGE [facility] MEDICARE Address: [address] [address] [place] [address] UHC MEDICARE ADVANTAGE [facility] MEDICARE Address: [address] [address] [place] [address] [facility] HMO/PPO Address: [address] [address] [place] [address] Advance Directives For more information, please contact: [phone] * Full Code (Latest Code Status on File) Date Activated Date Inactivated Comments 11/27/2024 7:14 AM 11/27/2024 1:26 PM * Full Code Date Activated Date Inactivated Comments 11/27/2024 7:14 AM 11/27/2024 7:14 AM Care Teams Coffee Bar Attendant Relationship Specialty Start Date End Date Eusebio Schaefer MD [address] [place] [address] PCP - General Family Medicine 04/17/24
--- OUTSIDE RECORDS SUMMARY | 2025-02-10 16:49 | XMS_ITS | Clinical Summary ---
Author Organization [facility] Address [address] [place] [phone] Phone Care Team Providers Care Engagement Mgr Name Role Phone Epifanio Cavanaugh MD Primary Care Provider [phone] Allergies No known active allergies Medications metoprolol [...] on file Legal Sex Female 10:17 AM REVIEW TRAINER Gender Identity Not on file Sexual Orientation [...] Colonography Q 5 years 2000 PNEUMOCOCCAL VACCINE 50+ YEARS (1 of 1 - PCV) 11/21/19 ZOSTER VACCINE (1 of 2) 2005 OSTEOPOROSIS SCREENING 2020 INFLUENZA VACCINE (#1) 2024 RSV VACCINE (60+ or ) (1 - 1-dose 75+ series) 2030 Care Teams Engagement Mgr Relationship Specialty Start Date End Date Epifanio Cavanaugh MD [address] [place] [address] PCP - General Family Practice 11/30/15
--- OUTSIDE RECORDS SUMMARY | 2025-02-10 16:49 | XMS_ITS | Encounter Summary ---
Author Organization [facility] Address [address] [place] [address] Phone Care Team Providers Care Tower Climber Name Role Phone Epifanio Cavanaugh MD Primary Care Provider [phone] uEsebio Schaefer MD Primary Care Provider [phone] Encounter Details Date Type Department Care Team (Latest Contact Info) Description 05/10/2017 Orders Only [facility] Scanning, Provider Social History Tobacco Use Types Packs/Day Years Used Date Smoking Tobacco: Never Comments Unknown Sex and Gender Information Value Date Recorded Sex Assigned at Not on file Legal Sex Female 8:12 PM MAT MAKING MACHINE TENDER Gender Identity Female 02/11/2020 1:13 PM CDT [...] on filedocumented in this encounter Care Teams Tower Climber Relationship Specialty Start Date End Date Epifanio Cavanaugh MD PCP - General 02/23/17 04/16/24 Eusebio Schaefer MD [facility] [place] [address] PCP - General Family Medicine 04/17/24 documented as of this encounter
--- OUTSIDE RECORDS SUMMARY | 2025-02-10 16:49 | XMS_ITS | Clinical Summary ---
Author Organization [facility] Address [address] [place] [address] Care Team Providers Care Cable Lacer Name Role Phone Epifanio Cavanaugh MD Primary Care Provider [phone] Source Comments [facility],non-owned Affiliates and Associated Physician Practices is amultiple site organization consisting of ambulatory clinics and hospital sitesin [place], [place], [place] and [place]. This disclosure is being madepursuant to the Care Everywhere program and may not contain all information available regarding this patient. Last updated 18.[facility] Allergies No known active allergies Immunizations Immunization Administration Dates Next Due INFLUENZA VACCINE, QUADR. (F LUZONE; FLULAVAL; FLUARIX; AFLURIA QUADRIVALENT; 6MO+), 0.5 ML (IIV4) 08/27/2019,07/08/2017 TDAP (7yrs+) 07/08/2017 Social History Tobacco Use Types Packs/Day Years Used Date Smoking Tobacco: Never Assessed Comments Unknown Sex and Gender Information Value Date Recorded Sex Assigned at Not on file Legal Sex Female 12:03 PM CDT Gender Identity Not on file Sexual Orientation [...] VACCINE (1 - 2023-2 5 season) 2024 DEPRESSION SCREENING 10/16/2024 INFLUENZA VACCINE (Season Ended) 2025 08/27/2019, 07/08/2017 DTAP/TDAP/TD VACCINES (2 - T d or [...] complete this topic MENINGOCOCCAL (Group B) VACCINE SHARED DECISION-MAKING Aged Out No longer eligible based on patient's age to complete this topic MENINGOCOCCAL GROUPS A/C/Y/W VACCINE Aged Out No longer eligible b ased on patient's age to complete this topic Insurance AETNA AETNA Care Teams Cable Lacer Relationship Specialty Start Date End Date Epifanio Cavanaugh MD [address] [place] [address] PCP - General Family Medicine 07/08/17
--- OUTSIDE RECORDS SUMMARY | 2025-02-10 16:49 | XMS_ITS | Clinical Summary ---
Author Organization [facility] Address [address] [place] [address] Care Team Providers Care Foundry Operator Name Role Phone Eusebio Schaefer MD Primary Care Provider Allergies No known active allergies Medications L.acidoph-L.rham n-B.bif-B.long (Probiotic Acidophilus Biobeads) 12.9 mg [...] 05/2025 Assessment & Plan (10/23/2024 3:34 PM SKYDIVING INSTRUCTOR): A(n) yearly Medicare Annual Wellness Visit has [...] Type Department Care Team Description 01/08/2025 Telephone [facility] Primary Care at [address] [phone] Eusebio Schaefer MD PA for Xifaxan 550MG tablets 12/11/2024 Orders Only [facility] Primary Care at [address] [phone] Eusebio Schaefer MD 11/27/2024 7:55 AM SKYDIVING INSTRUCTOR Anesthesia Event [address] [address] Quentin Michaud MD Zirkelbach, Cecilia A., CRNA 11/27/2024 7:25 AM SKYDIVING INSTRUCTOR - 11/27/2024 7:55 AM SKYDIVING INSTRUCTOR Surgery [address] [address] Divina Shaw MD COLON BIOPSY 11/27/2024 7:04 AM SKYDIVING INSTRUCTOR - 11/27/2024 9:26 AM SKYDIVING INSTRUCTOR Hospital Encounter [address] [address]Divina Barrow MD Positive colorectal cancer screening using Cologuard test; Encounter for screening colonoscopy Discharge Disposition: Discharge to home or self care from Last 3 Months Immunizations Immunization Administration Dates Next Due Influenza, Quadrivalent, Hig h Dose, Preservative Free, Intrr 08/04/2023,07/29/2022,07/31/2021 Influenza, Quadrivalent, Spl it, Preservative Free, Intramuscular 08/14/2020,08/27/2019,08/20/2018,07/08 Influenza, Split 07/02/2013 Influenza, Trivalent, High D ose, Split, Preservative Free, Intramuscular 07/02/2024 Influenza, Unspecified 07/02/2024 Pfizer SARS-CoV-2 Monovalent Vaccination (12+ Yrs) PURPLE 01/07/2021,12/17/2020 Pneumococcal Conjugate Pcv20 08/23/2024,04/17/20 24 Tdap 07/08/2017 ZOSTER Recombinant 12/09/2024,08/23/2024 Surgical History Surgery Date Site/Laterality Comments CHOLECYSTECTOMY HYSTERECTOMY GASTRIC FUNDOPLICATION 10/16/2017 - 10/15/2018 TUBAL LIGATION CATARACT EXTRACTION 2018 corrective lens HERNIA REPAIR 2016 ABDOMINAL SURGERY as listed above COLONOSCOPY 10/16/2019 - 10/15/2020 COLONOSCOPY 11/27/2024 Medical History Medical History Date Comments Hypertension Hyperlipidemia Sleep apnea Irritable bowel Hiatal hernia GERD (gastroesophageal reflux disease) Infectious viral hepatitis [birth year] as child Infection c-dif August 2018 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 Family History Medical History Relation Name [...] on file Legal Sex Female 8:12 PM SKYDIVING INSTRUCTOR Gender Identity Female 02/11/2020 1:13 PM CDT Sexual Orientation Straight 02/11/2020 1: 13 PM CDT 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 Not on file Not on file Obstetrics History Last Filed Vital Signs Vital Sign Reading Time Taken Comments Blood Pressure 118/63 11/27/2024 9:06 AM SKYDIVING INSTRUCTOR Pulse 51 11/27/2024 9:06 AM SKYDIVING INSTRUCTOR Temperature 36.6 C (97.8 F) 11/27/2024 9:06 AM SKYDIVING INSTRUCTOR Respiratory Rate 18 11/27/2024 9:06 AM SKYDIVING INSTRUCTOR Oxygen Saturation 97% 11/27/2024 9:06 AM SKYDIVING INSTRUCTOR Inhaled Oxygen Concentration - - Weight 66.7 kg (147 lb) 11/27/2024 7:19 AM SKYDIVING INSTRUCTOR Height 152.4 cm (5') 11/27/2024 7:19 AM SKYDIVING INSTRUCTOR Body Mass Index 28.71 11/27/2024 7:19 AM SKYDIVING INSTRUCTOR Plan of Treatment Health Maintenance Due Date Last Done Comments Osteoporosis Screening-Bone Density Scan 07/21/2024 07/21/2022 Covid-19 Vaccine (8 - 2023- 5 season) 2024 07/02/2024, 08/04/2023, 09/29/2022, Additional history exists Depression Screening 10/23/2025 10/23/2024, 04/17/20 Well Visit 65+ 10/23/2025 10/23/2024 Fall Risk Assessment 11/27/2025 11/27/2024, 10/23/2024, 04/17/2024 Breast Cancer Screening-Mammogram 12/09/2025 025 DTaP/Tdap/Td Vaccine (2 - Td or Tdap) 07/08/2027 07/08/2017 Colon Cancer Screening-Colonoscopy 11/27/2034 11/27/2024, 06/12/2020 Hepatitis C Screening Completed 06/30/2020 Hepatitis B Screening Completed 04/17/2024 Influenza Vaccine Completed 07/02/2024, , 08/04/2023, Additional history exists Pneumococcal vaccine 65+ Completed 08/23/2024, 07/0 12/2023 Colon Cancer Screening-CT Colonography Discontinued 11/27/2024, 06/12/2020 Colon Cancer Screening-DNA Stool Discontinued 11/27/19 25, 06/12/2020 Colon Cancer Screening-FIT Discontinued 11/27/2024, Colon Cancer Screening-Sigmoidoscopy Discontinued 11/27/2024, 06/12/2020 Zoster Vaccine Completed 12/09/2024, 08/23/2024 Procedures Procedure Name Priority Date/Time Associated Diagnosis Comments MAMMOGRAPHY Routine 12/09/2024 12:00 PM SKYDIVING INSTRUCTOR SURGICAL PATHOLOGY STAT 11/27/2024 11 :29 AM SKYDIVING INSTRUCTOR Positive colorectal cancer screening using Cologuard test Encounter for screening colonoscopy COLON BIOPSY 11/27/2024 7:49 AM SKYDIVING INSTRUCTOR Positive colorectal cancer screening using Cologuard test Encounter for screening colonoscopy COLONOSCOPY 11/27/2024 7:10 AM SKYDIVING INSTRUCTOR DEXA SCAN Routine 07/21/2022 11:13 AM CDT HEPATITIS C ANTIBODY Routine 06/30/2020 11:44 AM CDT Transaminitis from Last 3 Months or Most Recently Relevant to Health Maintenance Results * MAMMOGRAPHY (12/09/2024 12:00 PM SKYDIVING INSTRUCTOR) Mammography Normal us Historical Provider HEALTH MAINTENANCE Final Result * Surgical pathology (11/27/2024 11:29 AM SKYDIVING INSTRUCTOR) Tissue specimen (specimen) (Colon, Biopsy) 11/27/2024 8:33 AM SKYDIVING INSTRUCTOR Narrative PATHOLOGY [facility] ([facility]) - 11/28/2024 2:37 PM SKYDIVING INSTRUCTOR EPIC results best viewed via link to PDF [facility] Department of Pathology [address] [place] [id number] Note to Patients: This report may contain [...] the details. Final Report Patient Name: GINA MATHEWS [address]: [address] [place] [address] [place] [id number] Gender: F : 1955 (Age: 69) Service: Gastro Location: [facility] Hospital #: [id number] Patient Type: [facility] [address] Taken: 11/27/2024 Received: 11/27/2024 Accessioned: 11/27/2024 Reported: [...] determined by the Surgical Pathology Department at [facility] as part of an ongoing quality assurance director program and in compliance with federally mandated [...] characteristics determined by the Surgical Pathology Department [facility]. It has not been cleared or approved by the U. S. Food and Drug Administration. Note for decalcified specimens: This assay has not been validated on decalcified tissues. Results should be interpreted with caution given the possibility of false negativity on decalcified specimens Divina Shaw MD LAB PATHOLOGY ORDERABLES Final R esult Performing Organization Address City/State/[facility] Co de Phone Number PATHOLOGY [address] [address] * Colonoscopy (11/27/2024 7:10 AM SKYDIVING INSTRUCTOR) Anatomical Region Laterality Modality Other Narrative Procedure Note Divina Shaw MD - 11/27/2024 7:10 AM CST [facility] Patient Name: Gina Mathews Procedure Date: 11/27/2024 7:10 AM Date of : 1955 Admit Type: Outpatient Age: 69 Gender: Female Attending MD: Divina Shaw M.D. Room[facility] 2 Note Status: Finalized Patient [...] procedure were verified by the physician, the french instructor and the electronics technician in the endoscopy suite. Mental Status [...] passed under direct vision. The Pediatric Colonoscope [id number] was introduced through the anus and advanced [...] 7:10 AM Procedure Code(s): --- Professional --- 35811, Colonoscopy, flexible; with biopsy, single or multiple --- Technical --- 51153, Colonoscopy, flexible; with biopsy, single or multiple Diagnosis Code(s): --- Professional --- K64.8, Other hemorrhoids R19.5, Other fecal abnormalities --- Technical --- K64.8, Other hemorrhoids R19.5, Other fecal abnormalities CPT copyright 2020 [employer]. All rights reserved. The codes documented in this report are preliminary and upon scrap breaker reviewmay be revised to meet current compliance requirements. Recognized by the [employer] for promoting quality in endoscopy Divina Shaw MD ENDOSCOPY PROCEDURES Final Resul t * HM DEXA SCAN (07/21/2022 11:13 AM CDT) Historical Provider HEALTH MAINTENANCE Final Result * Hepatitis C antibody (06/30/2020 11:44 AM CDT) Hep C Ab Nonreactive Nonreactive CORNELIO KITCHEN Comment:Antibodies to HCV no t detected. Does NOT exclude the possibility of recent exposure to HCV. Blood specimen (specimen) 06/30/2020 11:44 AM CDT 06/30/2020 11:51 AM CDT Nathan Barton MD LAB MICROBIOLOGY - GENERAL ORDER TERRANCE Edited Result - Final [facility] Department of Laboratories [place], [place] [phone] from Last 3 Months or Most Recently Relevant to Health Maintenance Insurance [facility] MED[facility]ARE [facility] Address: [facility] [address] [place] [address] [facility] H[facility]/PPO Address: [address] [address] [place] [address] [facility] UHC MEDICARE ADVANTAGE [facility] Address: [address] [address] [place] [address] [facility] MEDICARE ADVANTAGE [facility] Address: [address] [address] [place] [address] [facility]/PPO Address: [address] [address] [place] [address] Advance Directives For more information, please contact: [phone] * Full Code (Latest Code Status on File) Date Activated Date Inactivated Comments 11/27/2024 7:14 AM 11/27/2024 1:26 PM * Full Code Date Activated Date Inactivated Comments 11/27/2024 7:14 AM 11/27/2024 7:14 AM Care Teams Foundry Operator Relationship Specialty Start Date End Date Eusebio Schaefer MD [address] [place] [address] PCP - General Family Medicine 04/17/24
== END 2025-02-10 14:40 | disposition home or self-care (01) ==
LOC: ANHIMG 14:39
PROVIDERS: PCP Family Medicine; Visit Provider Family Medicine
DX: M85.88 Other specified disorders of bone density and structure, other site (principal)
CPT/HCPCS: 77080